=== PATIENT | female | born 1940 | race African-American/Black ===

== ENCOUNTER 2018-05-19 19:55 | Inpatient (IN) ==
[2018-05-19] MEDS ORDERED: SODIUM CHLORIDE 0.9% 1000ML 1,000 ML IV SCH (20:45)
[2018-05-19 21:34] LABS: Appearance Urine Cloudy (Clear); Bacteria Urine Automated Negative (Negative); Bilirubin Urine Negative (Negative); Color Urine Dark Yellow; Epithelial Cell Urine Auto >30 /lpf (0-5); Glucose Urine UA Negative (Negative); Ketones Urine 1+ (Negative); Leukocyte Esterase Urine Negative (Negative); Nitrite Urine Negative (Negative); Protein Urine Trace (Negative); Specific Gravity Urine 1.034 (1.000-1.030); Urobilinogen Urine Negative (Negative)
[2018-05-19 21:51] LABS: Cast Urine Automated >30 /lpf (0-5)
--- NOTE | 2018-05-19 22:25 | XRay Report ---
XR chest 1V portable HISTORY: 77 years-old Female ams acutely altered mental status. Acute chest trauma with fall. COMPARISON: None available TECHNIQUE: Portable AP view of the chest FINDINGS: Cardiac silhouette is upper limits of normal in size. Lungs are mildly hyperinflated. No pneumothorax , pleural effusion, focal airspace consolidation or overt pulmonary edema. Indeterminate 3 mm nodular density of left midlung. Bones of the chest appear grossly intact. Patient is rotated towards the le ft. IMPRESSION: No acute process. The above report was generated using voice recognition software. It may contain grammatical, syntax o r spelling errors. Electronically signed by: Jatin Franz M.D. 05/19/2018 10:24 PM
--- NOTE | 2018-05-19 22:28 | XRay Report ---
XR hip BI w PEL1V, XR femur LT 2V routine, XR femur RT 2V routine HISTORY: 77 years-old Female pain fall acute pelvic and bilateral thigh pain status post fall COMPARISON: None available TECHNIQUE: AP view of the pelvis with 2 views of the bilateral hips and 2 views of the femora FINDINGS: PELVIS AND BILATERAL HIPS: Mildly demineralized appearance of the bones. 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 No acute fracture, dislocation or avascular necrosis. Soft tissues are unremarka ble. RIGHT FEMUR: No acute fracture or dislocation. LEFT FEMUR: No acute fracture or dislocation. Soft tissue swelling lateral to the left hip. IMPRESSION: No acute fracture or dislocation. The above report was generated using voice recognition software. It may contain grammatical, syntax o r spelling errors. Electronically signed by: Jatin Franz M.D. 05/19/2018 10:27 PM
--- NOTE | 2018-05-19 22:32 | XRay Report ---
XR knee RT 2V routine, XR tibia fibula LT 2V, XR knee LT 2V routine, XR tibia fibula RT 2V HISTORY: 77 years-old Female pain fall acute pain of the bilateral lower extremity status post fall COMPARISON: None available TECHNIQUE: 2 views of the bilateral knees and 2 views of the bilateral tibia and fibula FINDINGS: RIGHT KNEE: Mild lateral compartment with moderate medial and mild patellofemoral compartment osteoarthritis. No acute fracture or dislocation. 9 mm subcortical cyst versus osteochondral defect of the medial femora l condyle. Small joint effusion. LEFT KNEE: Mild medial compartment with mild to moderate lateral and mild patellofemoral osteoarthritis. Spurrin g of the tibial spines. Small joint effusion. No acute fracture or dislocation. RIGHT TIBIA/FIBULA: No acute fracture or dislocation. LEFT TIBIA/FIBULA: No acute fracture or dislocation. IMPRESSION: 1. No acute fracture or dislocation. 2. Small bilateral knee joint effusions. The above report was generated using voice recognition software. It may contain grammatical, syntax o r spelling errors. Electronically signed by: Jatin Franz M.D. 05/19/2018 10:31 PM
[2018-05-19 22:38] LABS: Alanine Aminotransferase 26 U/L (12-78); Albumin Level 2.7 gm/dl (3.4-5.0); Aspartate Aminotransferase 38 U/L (15-37); Bilirubin Direct 0.2 mg/dl (0-0.2); Blood Urea Nitrogen 34 mg/dl (7-18); Calcium 9.5 mg/dl (8.5-10.1); Carbon Dioxide 23 mmol/L (21-32); Chloride 117 mmol/L (98-107); Est GFR (African American) 31.6; Est GFR (Non-African American) 27.2; Glucose 156 mg/dl (70-99); Magnesium 2.9 mg/dl (1.8-2.4); Sodium 155 mmol/L (136-145)
[2018-05-19 22:47] LABS: Albumin Globulin Ratio 0.5 (0.9-2); Alkaline Phosphatase 94 U/L (45-117); Bilirubin,Total 0.6 mg/dl (0.1-1); Creatine Kinase 784 U/L (26-192); Globulin 5.6 gm/dl (2.5-4.0); Phosphorus 4.5 mg/dl (2.5-4.9); Total Protein 8.3 gm/dl (6.4-8.2); Troponin I 0.031 ng/ml (0-0.045)
--- NOTE | 2018-05-19 22:48 | CT Scan Report ---
CT head/brain wo con CLINICAL HISTORY: 77 years-old Female with syncope. Acute syncope TECHNIQUE: Multiple axial CT images of the head were obtained without contrast. A dose lowering tech nique was utilized adhering to the principles of ALARA. CT DOSE: 918.35 mGy.cm COMPARISON: CT cervical spine of same day. FINDINGS: No acute intracranial hemorrhage, midline shift, intracranial mass, hydrocephalus, territorial ischem ia or abnormal extra-axial collection. Moderate atrophy with ex vacuo ventriculomegaly. Moderate hypo densities about the white matter are suggestive of chronic microvascular ischemic changes. The calvarium is intact. The paranasal sinuses, mastoid air cells, and middle ear cavities are clear . IMPRESSION: No acute intracranial abnormality or calvarial fracture. The above report was generated using voice recognition software. It may contain grammatical, syntax o r spelling errors. Electronically signed by: Jatin Franz M.D. 05/19/2018 10:46 PM
--- NOTE | 2018-05-19 22:51 | CT Scan Report ---
CT cervical spine wo con CLINICAL HISTORY: 77 years-old Female with pain fall. Acute neck injury status post fall COMPARISON: CT head of same day. TECHNIQUE: Multiple axial CT images of the cervical spine were obtained without contrast. A dose low ering technique was utilized adhering to the principles of ALARA. FINDINGS: Multilevel uncovertebral spurring with mild facet arthrosis. No significant intervertebral disc space narrowing, acute fracture or subluxation. Evaluation of the central canal and neuroforamina is sandy r assessed by MRI. No definite high-grade central canal or foraminal narrowing identified. No prevertebral soft tissue swelling. Calcification noted about the bilateral carotid bulbs. Imaged l braxton apices appear clear. IMPRESSION: No acute cervical spine fracture or subluxation. The above report was generated using voice recognition software. It may contain grammatical, syntax o r spelling errors. Electronically signed by: Jatin Franz M.D. 05/19/2018 10:50 PM
--- NOTE | 2018-05-20 01:10 | Emergency Department Note ---
Entered by Gunner Burns acting as a scribe for History of Present Illness General Chief complaint: Fall Stated complaint: FALL Time Seen by Provider: 05/19/18 20:17 Source: patient and family Mode of arrival: ambulatory Limitations: altered mental status (Alzheimer's) History of Present Illness Provider complaint: fall Onset (ago): hour(s) (around 1530 today) Location: head (generalized) Pain Consistency: + other (episode) Quality: + other (fall) Associated symptoms: + confusion The patient is a 77 year old female who presents to the Emergency Room after experiencing a fall sometime around 1530 today. The HPI was limited and obtained via the patient's family and friends due to the fact the patient has a history of Alzheimer's and dementia. Per the patients family, they found her laying on the floor by her bed around 1530. The family reports they picked her up and placed her back on the bed and when they came back to check on her, she was leaning on her left side and almost sliding off of the bed. Prior to finding her the first time, the family states that they helped her to bed around 1500. A family friend states that she was unable to get a blood pressure on the patient and decided to bring her the the ED. The family reports the patient does not walk around independently and has been refusing to get up and eat or drink for about 4 days. The family reports the patient has generalized weakness. The family reports that the patient was more confused when they found her than she typically is. The family states that they had to carry the patient to the car as she refused to get up. 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 and A total of 10 systems reviewed and were otherwise negative Physical Exam Vital Signs Vital Signs - 24 hr 05/19/18 19:57 05/19/18 20:44 05/19/18 22:00 Temperature 36.4 C L Temperature Source Axillary Sepsis Recent Fever Within 48 Hours No Sepsis New/Unexplained Change in Mental Status No Sepsis Action Taken by Nursing No Action Required Pulse Rate 86 Pulse Rate [Right Finger] 101 H 99 H Pulse Rhythm [Right Finger] Regular Regular Pulse Strength [Right Finger] Normal Normal Respiratory Rate 18 19 19 Respiratory Effort / Characteristics Non-Labored Respiratory Depth Normal Respiratory Pattern Regular Blood Pressure [Right Arm] 136/94 Blood Pressure Mean [Right Arm] 108 Blood Pressure Position [Right Arm] Lying Pulse Oximetry 97 98 98 Oxygen Delivery Method Room Air Room Air 05/19/18 22:02 05/19/18 22:47 05/20/18 02:22 Temperature Temperature Source Sepsis Recent Fever Within 48 Hours Sepsis New/Unexplained Change in Mental Status Sepsis Action Taken by Nursing Pulse Rate Pulse Rate [Right Finger] 98 H 85 78 Pulse Rhythm [Right Finger] Regular Pulse Strength [Right Finger] Normal Respiratory Rate 21 20 18 Respiratory Effort / Characteristics Non-Labored Respiratory Depth Normal Respiratory Pattern Regular Blood Pressure [Right Arm] 124/85 115/95 126/59 L Blood Pressure Mean [Right Arm] 98 101 81 Blood Pressure Position [Right Arm] Lying Lying Pulse Oximetry 97 97 98 Oxygen Delivery Method Room Air 05/20/18 02:24 05/20/18 03:00 Temperature 36.3 C L Temperature Source Oral Sepsis Recent Fever Within 48 Hours Sepsis New/Unexplained Change in Mental Status Sepsis Action Taken by Nursing Pulse Rate Pulse Rate [Right Finger] 90 Pulse Rhythm [Right Finger] Regular Pulse Strength [Right Finger] Normal Respiratory Rate 16 Respiratory Effort / Characteristics Non-Labored Spontaneous Respiratory Depth Normal Respiratory Pattern Regular Blood Pressure [Right Arm] 91/81 L Blood Pressure Mean [Right Arm] 84 Blood Pressure Position [Right Arm] Lying Pulse Oximetry 94 Oxygen Delivery Method Room Air Room Air GENERAL: Awake, alert, ill-appearing, unkept. Pleasantly confused. In no distress. HENT: Normocephalic, atraumatic. Dry, cracked mucous membranes. EYES: Normal conjunctiva. Sclera non-icteric. NECK: Supple. No nuchal rigidity. FROM. No JVD. RESPIRATORY: Clear to auscultation. CARDIAC: Regular rate, normal rhythm. Extremities warm and well perfused. Pulses equal. ABDOMEN: Soft, non-distended. No tenderness to palpation. No rebound or guarding. No masses. RECTAL: Deferred. MUSCULOSKELETAL: Chest examination reveals no tenderness. The back is symmetrical on inspection without obvious abnormality. There is no CVA tenderness to palpation. LOWER EXTREMITIES: No discoloration. Tenderness of bilateral lower extremity from hip to ankle. No gross deformity. Left lower extremity 2+ edema. NEURO: Normal sensorium. No sensory or motor deficits noted. Moving all extremities equally. SKIN: No rash or jaundice noted. Course 2018: Past medical records reviewed. The patient was evaluated in room A1, and a complete history and physical examination were performed. 2255: [facility] will evaluate the patient for further management. 2300: The patient and family at bedside verbally expressed understanding and agreement of the treatment plan. The patient will be further evaluated by Dr. Gary [facility]. Reevaluation(s) Reevaluation #1: Dr. Gary [facility] Time: 22:55 Administered Medications Discontinued Medications Sodium Chloride (Nss 1000ml) 1,000 mls @ 999 mls/hr IV .Q1H1M WANG Stop: 05/19/18 21:45 Last Infusion: 05/19/18 23:27 Dose: 0 mls/hr Admin: 05/19/18 22:20 Dose: 999 mls/hr Medical Decision Making Differential Diagnosis Differential diagnosis: Etiologies such as metabolic, infection, hypo/hyperglycemia, electrolyte abnormalities, cardiac sources, intracerebral event, toxicologic, neurologic, as well as others were entertained. Medical Records Attestation: I reviewed the patient's medical records. Home Medications Current Medication List: was personally reviewed by me Laboratory Data Attestation: I reviewed the patient's lab results. Result diagrams: 05/19/18 22:12 05/19/18 22:12 Lab Results 05/19/18 05/19/18 05/19/18 Range/Units 21:13 22:12 22:12 WBC Cancelled RBC Cancelled Hgb Cancelled Hct Cancelled MCV Cancelled MCH Cancelled MCHC Cancelled RDW Std Deviation Cancelled RDW Coeff of Neo Cancelled Plt Count Cancelled MPV Cancelled Immature Gran % (Auto) Cancelled Neut % (Auto) Cancelled Lymph % (Auto) Cancelled Person % (Auto) Cancelled Eos % (Auto) Cancelled Baso % (Auto) Cancelled Immature Gran # (Auto) Cancelled Neut # (Auto) Cancelled Lymph # (Auto) Cancelled Person # (Auto) Cancelled Eos # (Auto) Cancelled Baso # (Auto) Cancelled Absolute Nucleated RBC Cancelled Nucleated RBC % (auto) Cancelled Neutrophils % (Manual) Cancelled Band Neutrophils % Cancelled Lymphocytes % (Manual) Cancelled Prolymphocyte % Cancelled Reactive Lymphs % (Man) Cancelled Monocytes % (Manual) Cancelled Eosinophils % (Manual) Cancelled Basophils % (Manual) Cancelled Metamyelocytes % (Man) Cancelled Myelocytes % (Man) Cancelled Promyelocytes % (Man) Cancelled Blast Cells % (Manual) Cancelled Plasma Cell % (Manual) Cancelled Other Cells % Cancelled Nucleated RBC % Cancelled Neutrophils # (Manual) Cancelled Band Neutrophils # Cancelled Total Absolute Neuts Cancelled Lymphocytes # (Manual) Cancelled Prolymphocyte # Cancelled Reactive Lymphs # Cancelled Total Abs Lymphocytes Cancelled Monocytes # (Manual) Cancelled Eosinophils # (Manual) Cancelled Basophils # (Manual) Cancelled Metamyelocytes # (Man) Cancelled Myelocytes # (Manual) Cancelled Promyelocytes # (Man) Cancelled Blast Cells # (Man) Cancelled Plasma Cell # (Manual) Cancelled Other Cells # Cancelled Nucleated RBCs # (Man) Cancelled Hypersegmented Neuts Cancelled Hyposegmented Neuts Cancelled Hypogranular Neuts Cancelled Large Granular Lymphs Cancelled # Lrg Granular Lymphs Cancelled Hairy Cells Cancelled Smudge Cells Cancelled Toxic Granulation Cancelled Toxic Vacuolation Cancelled Dohle Bodies Cancelled Garcia Rods Cancelled Platelet Estimate Cancelled Hypogranular Platelets Cancelled Clumped Platelets Cancelled Giant Platelets Cancelled Platelet Satelliting Cancelled RBC Morphology Cancelled Polychromasia Cancelled Hypochromasia Cancelled Poikilocytosis Cancelled Basophilic Stippling Cancelled Anisocytosis Cancelled Microcytosis Cancelled Macrocytosis Cancelled Spherocytes Cancelled Pappenheimer Bodies Cancelled Sickle Cells Cancelled Target Cells Cancelled Tear Drop Cells Cancelled Ovalocytes Cancelled Stomatocytes Cancelled Lamb-Chesnee Bodies Cancelled Echinocytes Cancelled Acanthocytes (Spur) Cancelled Rouleaux Cancelled RBC Agglutinates Cancelled Schistocytes Cancelled RBC Morph Comment Cancelled Sezary Cell Cancelled Sodium 155 H (136-145) mmol/L Potassium 4.0 (3.5-5.1) mmol/L Chloride 117 H (98-107) mmol/L Carbon Dioxide 23 (21-32) mmol/L Anion Gap 14.0 H (3-11) BUN 34 H (7-18) mg/dl Creatinine 1.76 H (0.6-1.2) mg/dl Est Cr Clr Drug Dosing Not Reportable Est GFR ( Amer) 31.6 Est GFR (Non-Af Amer) 27.2 BUN/Creatinine Ratio 19.0 (10-20) Glucose 156 H (70-99) mg/dl Calcium 9.5 (8.5-10.1) mg/dl Phosphorus 4.5 (2.5-4.9) mg/dl Magnesium 2.9 H (1.8-2.4) mg/dl Total Bilirubin 0.6 (0.1-1) mg/dl Direct Bilirubin 0.2 (0-0.2) mg/dl AST 38 H (15-37) U/L ALT 26 (12-78) U/L Alkaline Phosphatase 94 (45-117) U/L Total Creatine Kinase 784 H (26-192) U/L Troponin I 0.031 (0-0.045) ng/ml Total Protein 8.3 H (6.4-8.2) gm/dl Albumin 2.7 L (3.4-5.0) gm/dl Globulin 5.6 H (2.5-4.0) gm/dl Albumin/Globulin Ratio 0.5 L (0.9-2) Lipase 147 (73-393) U/L TSH 3.810 (0.300-4.500) uIu/ml Urine Color Dark Yellow Urine Appearance Cloudy H (Clear) Urine pH 5.0 (4.5-7.5) Ur Specific [place] 1.034 H (1.000-1.030) Urine Protein Trace H (Negative) Urine Glucose (UA) Negative (Negative) Urine Ketones 1+ H (Negative) Urine Blood Negative (Negative) Urine Nitrite Negative (Negative) Urine Bilirubin Negative (Negative) Urine Urobilinogen Negative (Negative) Ur Leukocyte Esterase Negative (Negative) Urine WBC (Auto) 1-5 (0-5) /hpf Urine RBC (Auto) 0-4 (0-4) /hpf U Hyaline Cast (Auto) >30 H (0-5) /lpf U Epithel Cells (Auto) >30 H (0-5) /lpf Urine Bacteria (Auto) Negative (Negative) Granular Casts 1-5 H (0) /lpf Imaging Data Radiologist's Impression: Radiology results as stated below per my review and the radiologist's interpretation: CT head/brain wo con CLINICAL HISTORY: 77 years-old Female with syncope. Acute syncope TECHNIQUE: Multiple axial CT images of the head were obtained without contrast. A dose lowering technique was utilized adhering to the principles of ALARA. CT DOSE: 918.35 mGy.cm COMPARISON: CT cervical spine of same day. FINDINGS: No acute intracranial hemorrhage, midline shift, intracranial mass, hydrocephalus, territorial ischemia or abnormal extra-axial collection. Moderate atrophy with ex vacuo ventriculomegaly. Moderate hypodensities about the white matter are suggestive of chronic microvascular ischemic changes. The calvarium is intact. The paranasal sinuses, mastoid air cells, and middle ear cavities are clear. IMPRESSION: No acute intracranial abnormality or calvarial fracture. The above report was generated using voice recognition software. It may contain grammatical, syntax or spelling errors. Electronically signed by: Jatin Franz M.D. 05/19/2018 10:46 PM XR knee RT 2V routine, XR tibia fibula LT 2V, XR knee LT 2V routine, XR tibia fibula RT 2V HISTORY: 77 years-old Female pain fall acute pain of the bilateral lower extremity status post fall COMPARISON: None available TECHNIQUE: 2 views of the bilateral knees and 2 views of the bilateral tibia and fibula FINDINGS: RIGHT KNEE: Mild lateral compartment with moderate medial and mild patellofemoral compartment osteoarthritis. No acute fracture or dislocation. 9 mm subcortical cyst versus osteochondral defect of the medial femoral condyle. Small joint effusion. LEFT KNEE: Mild medial compartment with mild to moderate lateral and mild patellofemoral osteoarthritis. Spurring of the tibial spines. Small joint effusion. No acute fracture or dislocation. RIGHT TIBIA/FIBULA: No acute fracture or dislocation. LEFT TIBIA/FIBULA: No acute fracture or dislocation. IMPRESSION: 1. No acute fracture or dislocation. 2. Small bilateral knee joint effusions. The above report was generated using voice recognition software. It may contain grammatical, syntax or spelling errors. Electronically signed by: Jatin Franz M.D. 05/19/2018 10:31 PM XR hip BI w PEL1V, XR femur LT 2V routine, XR femur RT 2V routine HISTORY: 77 years-old Female pain fall acute pelvic and bilateral thigh pain status post fall COMPARISON: None available TECHNIQUE: AP view of the pelvis with 2 views of the bilateral hips and 2 views of the femora FINDINGS: PELVIS AND BILATERAL HIPS: Mildly demineralized appearance of the bones. 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 No acute fracture, dislocation or avascular necrosis. Soft tissues are unremarkable. RIGHT FEMUR: No acute fracture or dislocation. LEFT FEMUR: No acute fracture or dislocation. Soft tissue swelling lateral to the left hip. IMPRESSION: No acute fracture or dislocation. The above report was generated using voice recognition software. It may contain grammatical, syntax or spelling errors. Electronically signed by: Jatin Franz M.D. 05/19/2018 10:27 PM XR chest 1V portable HISTORY: 77 years-old Female ams acutely altered mental status. Acute chest trauma with fall. COMPARISON: None available TECHNIQUE: Portable AP view of the chest FINDINGS: Cardiac silhouette is upper limits of normal in size. Lungs are mildly hyperinflated. No pneumothorax, pleural effusion, focal airspace consolidation or overt pulmonary edema. Indeterminate 3 mm nodular density of left midlung. Bones of the chest appear grossly intact. Patient is rotated towards the left. IMPRESSION: No acute process. The above report was generated using voice recognition software. It may contain grammatical, syntax or spelling errors. Electronically signed by: Jatin Franz M.D. 05/19/2018 10:[address] cervical spine wo con CLINICAL HISTORY: 77 years-old Female with pain fall. Acute neck injury status post fall COMPARISON: CT head of same day. TECHNIQUE: Multiple axial CT images of the cervical spine were obtained without contrast. A dose lowering technique was utilized adhering to the principles of ALARA. FINDINGS: Multilevel uncovertebral spurring with mild facet arthrosis. No significant intervertebral disc space narrowing, acute fracture or subluxation. Evaluation of the central canal and neuroforamina is better assessed by MRI. No definite high-grade central canal or foraminal narrowing identified. No prevertebral soft tissue swelling. Calcification noted about the bilateral carotid bulbs. Imaged lung apices appear clear. IMPRESSION: No acute cervical spine fracture or subluxation. The above report was generated using voice recognition software. It may contain grammatical, syntax or spelling errors. Electronically signed by: Jatin Franz M.D. 05/19/2018 10:50 PM STATRAD: Preliminary Findings Only See Final Report For Complete Findings US VENOUS LEFT LOWER EXTREMITY: Findings consistent with acute deep vein thrombosis in left common femoral vein , femoral vein, and popliteal vein. The left common femoral vein is patent above the level of the greater saphenous vein and veins are occluded below this point. Also evidence of thrombus in the calf veins where a small amount of flow is demonstrated. Radiologist: Trell Singh MD Study ready at 00:50 and initial results transmitted at 01:03 Critical Value Communications Clear Time Type Notes Call Doctor Acute DVT ECG Data Attestation: I personally reviewed and interpreted this ECG as follows: Indication: other (fall) Rate (beats per minute): 103 Rhythm: sinus tachycardia Findings: + other (normal axis, significant baseline artifact) and + nonspecific -ST abn; no acute ischemic change Blood Pressure Blood Pressure Findings: Normal blood pressure Blood Pressure Disposition: did not require urgent referral MDM Narrative The patient is a pleasant 77-year-old woman with a past medical history of dementia resents emergency department from home with worsening generalized weakness and confusion over the past week subsequent unwitnessed fall today found down by her granddaughter, helped back into bed allowed to rest but upon reevaluation the family found her with decreased responsiveness and unwillingness to ambulate and so was brought to the emergency department. On arrival the patient is alert to self, pleasantly confused at her baseline per family at the bedside. EKG demonstrates sinus tachycardia with baseline artifact and nonspecific ST and T wave abnormalities but no gross evidence of ischemia. Chest x-ray negative for pneumonia. Plain films of bilateral hips, pelvis, femur, tib-fib negative for fractures. Chemistry demonstrates acute renal failure and hypernatremia consistent with the patient's clinically dry appearance. Sodium 155, chloride 117, BUN 34 and creatinine 1.76. UA with ketones consistent with the patient's clinically dry appearance. No evidence of infection at this time. Additional labs pending however, given indication for admission, case was d/w [facility]. Gary, [facility] hospitalist, who will evaluate the patient for admission. Duplex performed of the left lower extremity and demonstrates extensive DVT including common femoral vein, femoral vein, and popliteal vein. Patient was difficult IV access given her significant dehydration. Initial chemistry obtained however CBC still pending. IV access was obtained in her foot. I did attempt an ultrasound-guided peripheral line twice however despite initial successful cannulation patient's movement resulted in failure of line. Patient's daughter at the bedside expressing frustration, "she is not a pin cushion." Thus, additional IV access pending IV team. Lab also unable to obtain access for cbc. Will hold on heparinization for DVT until CBC obtained. Of note, there was report of failure of patient's foot IV access however bed was ready and patient was transferred to floor by nursing upon IV team arrival prior to obtaining CBC or additional IV access. Thus, IV team to place periphereal line on floor and obtain pending lab work. Dr. Gary was updated. Impression & Plan Hypernatremia, RYAN (acute kidney injury), DVT of lower extremity (deep venous thrombosis) Discharge Plan Visit Data *Final* Discharge Date/Time: 05/20/18 02:24 Chief Complaint: Fall Stated Complaint: FALL ED Provider: Lakhwinder Dash Discharge Problem: Hypernatremia, RYAN (acute kidney injury), DVT of lower extremity (deep venous thrombosis) Patient Disposition: Admitted As Inpatient Discharge Instructions Interventions: ED Discharge Assessment Last Done: 05/20/18 02:24 The scribe's documentation has been prepared under my direction and personally reviewed by me in its entirety. I confirm that the note above accurately reflects all work, treatment, procedures, and medical decision making performed by me.
[2018-05-20] MEDS ORDERED: NITROGLYCERIN SL 0.4 MG/TAB TAB SL PRN (03:16)
[2018-05-20] MEDS ORDERED: SODIUM CHLORIDE 0.45 % 1,000 ML IV SCH (03:16)
[2018-05-20] MEDS ORDERED: PATIENT'S HEIGHT AND/OR WEIGHT NEEDED SCH (03:30)
--- NOTE | 2018-05-20 04:01 | History and Physical Report ---
DATE OF ADMISSION: 05/19/2018 CHIEF COMPLAINT: Status post fall. HISTORY OF PRESENT ILLNESS: This is a 77-year-old female with past medical history significant for vascular dementia, Alzheimer dementia, chronic kidney disease stage III, who lives with her daughter, was brought in because she fell from the bed. Patient has ongoing dementia. As per daughter patinet is not walking since February. She is eating very little. She is on regular food. Last bowel movement was about a week ago, and she is urinating okay. Mostly does not talk much. She can tell her name, she does not know where she is, obeys simple commands. As per daughter, she complained of some right groin pain. Currently resting comfortably and hemodynamically stable. Labs showed sodium of 155. Afebrile. No cough, no nausea, no vomiting, no headaches. Could not get much history from the patient. Daughter Also complains of left lower extremity swelling ALLERGIES: PENICILLIN. PAST MEDICAL HISTORY: As mentioned above. PAST SURGICAL HISTORY: None. MEDICATIONS: Seroquel 25 mg p.o. at bedtime. FAMILY HISTORY: No family history on file. SOCIAL HISTORY: . Lives with the daughter. Former smoker many, years ago. No alcohol use, no drug use as per records. REVIEW OF SYSTEMS: Unobtainable. PHYSICAL EXAMINATION: GENERAL: Patient is old and frail, not in acute distress. VITAL SIGNS: Temperature 36.4, pulse 85, respiratory rate 20, blood pressure 115/95, oxygen saturation 97% on room air. HEENT: No pallor, no icterus. Pupils equal, round, and reactive to light. NECK: No JVD, no neck masses, no carotid bruits. CARDIOVASCULAR SYSTEM: S1 and S2 heard, regular rate and rhythm, no murmur, no gallop. RESPIRATORY SYSTEM: Clear to auscultation bilaterally. No wheezing, no crackles. ABDOMEN: Soft, bowel sounds present, nontender, no distention. CENTRAL NERVOUS SYSTEM: Alert, awake, oriented to name only, obeys simple commands. EXTREMITIES: left lower extremity edema present, no erythema seen . LABORATORY DATA: Only chemistries were drawn, which showed sodium of 155, potassium of 4, chloride 117, CO2 of 23, BUN 34, creatinine 1.76, glucose 156, calcium 9.5, phosphorus 4.5, magnesium 2.9, total bilirubin 0.6, direct bilirubin 0.2, AST 38, ALT 26, alkaline phosphatase 94, total creatinine kinase 184. Troponin I is 0.034. Lipase 147. TSH 3.8. Urinalysis: Trace ketones and protein. IMAGING: CT of the head unremarkable. Tibia/fibula x-ray unremarkable. Knee x-ray is unremarkable. Hip x-ray unremarkable. Femur x-ray unremarkable. Chest x-ray: No acute process. Cervical spine CT: No acute process. Venous Doppler is pending. ASSESSMENT AND PLAN: This is a 77-year-old female who presents with fall and found to have hypernatremia, dementia, seems to be failure to thrive. Not eating much at home. She is still on regular diet. She has dementia since about 1 year as per daughter, and she is not walking since February. Will put her on a soft diet until nutrition and also speech evaluation. For hypernatremia, will place him on half normal saline at 100 mL/h. and BMP q.6 h. and consult nephrology for further recommendations. Fall Patient is not ambulating since February. Will get PT/OT. Social service for plan on disposition. Daughter seems poor historian. Needs to check safe to return home on disposition. Acute on chronic kidney disease stage III. Baseline creatinine 1.0, current creatinine 1.7. Fluids as able. We will follow the labs. Dementia. Recently, daughter took her to the neurologist, but she did not stay there for complete examination. Consider consulting neurology while the patient is inpatient. CT of the brain was done in 02/2018 and It showed calcified meningioma on the left frontal convex. Mild mass effect. CT of the head done In ER shows no acute findings. Consider neurology consult. DVT prophylaxis. heparin DISPOSITION: Admit to tele floor. PT/OT prior to discharge. Social Service to help with discharge planning. Code status level 3 as per discussion with the daughter. Addendum: Left lower extremity DVT: Starting on iv heparin whenever iv line available difficult to get a line. Ordered picc line. [facility]
[2018-05-20 05:48] LABS: INR 1.3 (0.9-1.1); Partial Thromboplastin Ratio 0.8; Partial Thromboplastin Time 20.5 Seconds (21.0-31.0); Prothrombin Time 12.7 Seconds (9.0-12.0)
[2018-05-20] MEDS ORDERED: HEPARIN SOD 5,000 UNIT/0.5 ML VIAL SQ SCH (06:00)
[2018-05-20 06:13] LABS: BUN Creatinine Ratio 26.2 (10-20); Calcium 8.5 mg/dl (8.5-10.1); Creatinine Clr Calc Pharmacy 32.4 ml/min; Est GFR (African American) 41.3; Est GFR (Non-African American) 35.6; Hematocrit (blood only) 40.6 % (37-47); Hemoglobin 12.2 g/dL (12.0-16.0); Magnesium 2.7 mg/dl (1.8-2.4); Mean Corpuscular Volume 74.4 fL (80-100); Nucleated RBC # (auto) 0.06 K/uL (0-0); Nucleated RBC % (auto) 0.4 %; Platelet Count 192 K/uL (130-400); Potassium 4.1 mmol/L (3.5-5.1); RDW Coefficient of Variation 14.9 % (11.5-14.5); RDW Standard Deviation 39.3 fL (36.4-46.3); Red Blood Count 5.46 M/uL (4.2-5.4); White Blood Count 16.67 K/uL (4.8-10.8)
[2018-05-20 06:14] LABS: Basophils # (auto) 0.02 K/uL (0-0.2); Basophils % (auto) 0.1 %; Eosinophils # (auto) 0.09 K/uL (0-0.5); Eosinophils % (auto) 0.5 %; Hypochromasia Present; Immature Granulocytes % (auto) 0.6 %; Lymphocytes # (auto) 1.71 K/uL (1.2-3.4); Lymphocytes % (auto) 10.3 %; Monocytes # (auto) 1.35 K/uL (0.11-0.59); Monocytes % (auto) 8.1 %; Neutrophils % (auto) 80.4 %
[2018-05-20 06:17] LABS: Phosphorus 3.4 mg/dl (2.5-4.9)
--- NOTE | 2018-05-20 07:07 | Ultrasound Report ---
LEFT LOWER EXTREMITY VENOUS DOPPLER CLINICAL HISTORY: swelling pain. COMPARISON STUDY: No previous studies for comparison. TECHNIQUE: Sonography of the deep venous system of the left lower extremity was performed. Compressi on and augmentation were evaluated. FINDINGS: Note is made of deep venous thrombus within the left common femoral, femoral and popliteal veins. There is also suspected thrombus within the left calf veins. IMPRESSION: Extensive left lower extremity deep venous thrombus. Electronically signed by: Mc Mckay M.D. 05/20/2018 7:05 AM
[2018-05-20 08:11] LABS: Base Excess VBG 1.8 mEq/L; Oxygen Saturation VBG 72.8 %; pH VBG 7.41 (7.36-7.41)
[2018-05-20] MEDS ORDERED: HEPARIN IV BOLUS 5,000 UNITS in SYRINGE 0 ML IV ONE (09:00)
[2018-05-20] MEDS: MULTIVITAMIN TAB PO SCH (09:32)
[2018-05-20] MEDS: HEPARIN STANDARD DEXTROSE 25,000 UNITS/500 ML IV SCH (09:38)
[2018-05-20] MEDS: DEXTROSE 5% 500 ML IV SCH ×2 (09:38→14:59)
[2018-05-20 12:15] LABS: BUN Creatinine Ratio 25.9 (10-20); Calcium 8.9 mg/dl (8.5-10.1); Est GFR (African American) 40.6
[2018-05-20 13:09] LABS: BUN Creatinine Ratio 25.7 (10-20); Calcium 8.8 mg/dl (8.5-10.1); Creatinine Clr Calc Pharmacy 31.8 ml/min; Est GFR (African American) 40.2; Est GFR (Non-African American) 34.7; Potassium 3.6 mmol/L (3.5-5.1)
--- NOTE | 2018-05-20 14:11 | Consultation Report ---
DATE OF CONSULTATION: 05/20/2018 REASON FOR CONSULT: Acute renal failure and hypernatremia. HISTORY OF PRESENT ILLNESS: The patient is a 77-year-old female with dementia as well as chronic kidney disease stage III, who lives with her daughter, who was brought in because she fell from the bed. The patient has ongoing dementia. She has not been able to walk for the last 2 months. She is not eating anything. Last bowel movement was about a week ago. At the time of admission, serum sodium was 155. Since then, she got normal saline and this morning, sodium went up even higher to 157 after which fluid was changed over to D5 water. We do not have a BMP since being on the D5 water. She is currently getting at 100 mL per hour. Creatine kinase was also slightly elevated. Renal function was worse than baseline; however, it did improve from 1.76 on admission to 1.41 this morning. She does have a Dickinson catheter, but has not made a lot of urine as of now. Hemodynamically, she is stable with good blood pressure and pulse and oxygen. PAST MEDICAL AND SURGICAL HISTORY: Vascular dementia, Alzheimer dementia, CKD stage III with a baseline creatinine in the low 1s, hypertension. REVIEW OF SYSTEMS: Unobtainable as the patient has dementia and she does not answer questions, but she does talk a little bit. SOCIAL HISTORY: She is a , lives with her daughter. Former smoker. No alcohol, no drugs. FAMILY HISTORY: Noncontributory. MEDICATIONS: At home include Seroquel 25 mg p.o. at bedtime. PHYSICAL EXAMINATION: GENERAL: Elderly black female who is old and frail. She is not in any distress. She is pleasant and does answer simple questions, but then is not always accurate. HEENT: Mucous membrane is dry. NECK: Supple. No jugular venous distention. VITAL SIGNS: Blood pressure is 161/96, 94% on room air, temperature 36.2 degrees Celsius. CHEST: Decreased breath sounds because she did not take inspiratory effort. CARDIOVASCULAR: S1 and S2, regular. ABDOMEN: Soft, nontender. EXTREMITIES: No edema in the right, but she does have trace to 1+ edema in the left. LABORATORY TEST: Sodium 157, potassium 4.1, chloride 124, carbon dioxide 23, BUN 37, creatinine is down to 1.41 from 1.76, calcium 8.5, magnesium 2.7. Total creatine kinase was 784, dropped down to 595. She had a venous Doppler study done, which actually showed extensive left lower extremity DVT. ASSESSMENT AND PLAN: A 77-year-old female who has dementia and has not been moving for the last 2 months, presented to the hospital following a fall and was noted to have acute renal failure as well as hypernatremia. 1. Acute renal failure. 2. Hypernatremia. Both of these are related with extreme lack of oral intake. She has not been eating and even now in the hospital, she has not eaten even 10% of her meal. Etiology of hypernatremia as well as renal failure is prerenal and is getting better. At least the creatinine part is already better. Sodium will get better now that we have changed it to D5 water and will continue that at 100 mL per hour. 3. Left lower extremity deep venous thrombosis secondary to prolonged immobilization. She is getting heparin for that. This also explains why she has unilateral edema in the left. Continue to do BMP every 8 hours. We will do one now and another one later in the evening tonight. We would aim to correct the serum sodium by about 10 mEq per day. MTDD
[2018-05-20] MEDS: DEXTROSE 5% 1,000 ML IV SCH ×2 (15:32→23:35)
[2018-05-20 16:03] LABS: BUN Creatinine Ratio 26.3 (10-20); Calcium 8.5 mg/dl (8.5-10.1); Creatinine Clr Calc Pharmacy 32.9 ml/min; Est GFR (Non-African American) 36.2; Potassium 3.4 mmol/L (3.5-5.1)
[2018-05-20 16:47] LABS: Partial Thromboplastin Time 157.1 Seconds (21.0-31.0)
[2018-05-20 18:49] LABS: Partial Thromboplastin Ratio 8.1; Partial Thromboplastin Time 214.5 Seconds (21.0-31.0)
[2018-05-20 19:52] LABS: Partial Thromboplastin Ratio 2.9; Partial Thromboplastin Time 74.2 Seconds (21.0-31.0)
--- NOTE | 2018-05-20 20:07 | Hospitalist Progress Note ---
Date of Service May 20, 2018 Assessment & Plan (1) Hypernatremia: Hypernatremia serum sodium 155 on admission possibly hypernatremia can contribute to dementia On D5W which has been increased from 100 cc/hr to 125 cc/hr as repeated serum sodium with only decline to 154 Nephrology consult following the patient History of Dementia Recently, daughter took her to the neurologist, but she did not stay there for complete examination. Consider consulting neurology while the patient is inpatient. CT of the brain was done in 02/2018 and It showed calcified meningioma on the left frontal convex. Mild mass effect. CT of the head done In ER shows no acute findings. Fall at home Patient is minimally ambulating since February 2018 as per history PT/OT elevated creatinine kinase is downtrending with IV fluids Acute on chronic kidney disease stage III. Baseline creatinine 1.0, admission creatinine 1.7 on IV fluids (2) DVT of lower extremity (deep venous thrombosis): Extensive left lower extremity deep venous thrombus on heparin drip Code Status as per patient's daughter Miladys [phone], the code status is DNR/DNI Subjective Patient interactive with staff and responds more appropriately through the day but as per patient's daughter Miladys [phone] that her orientation is generally baseline dementia. Patient not oriented to time and place but pleasant. Denies acute pain or shortness of breath. no vomiting. Physical Exam 2 Vital Signs (Past 24 Hours): Last Vital Signs Temp 36.5 C 05/20/18 19:00 Pulse 70 05/20/18 19:00 Resp 19 05/20/18 19:00 BP 143/85 H 05/20/18 19:00 Pulse Ox 97 05/20/18 19:00 Constitutional: WD/WN, vitals as above Eyes: PERRL, conjunctivae normal, anicteric sclerae EOM intact bilaterally ENMT: external ear and nose normal, oropharynx normal Neck: normal visual inspection and trachea midline Respiratory: normal respiratory effort, lungs clear to auscultation Cardiovascular: RRR, no murmur, no edema Gastrointestinal (Abdomen): normal bowel sounds, soft, nontender, no hepatosplenomegaly Musculoskeletal: Head/Neck/Chest: normocephalic and head atraumatic Neurologic: PERRL, EOMI, accommodation nl, no face palsy, no dysarthria CN' s II-XI intact bilaterally Psychiatric: Orientation: alert and oriented to person _ (1) DVT of lower extremity (deep venous thrombosis) Affected thrombotic vein of extremity: femoral Chronicity: acute Laterality : left Qualified Code(s): I82.412 - Acute embolism and thrombosis of left femoral vein
[2018-05-20] MEDS ORDERED: QUETIAPINE FUMARATE 25 MG TABLET PO SCH (21:00)
[2018-05-20 22:25] LABS: BUN Creatinine Ratio 25.2 (10-20); Calcium 8.5 mg/dl (8.5-10.1); Creatinine Clr Calc Pharmacy 34.7 ml/min; Est GFR (African American) 44.7; Est GFR (Non-African American) 38.5; Potassium 3.3 mmol/L (3.5-5.1)
[2018-05-20] MEDS: SODIUM CHLORIDE 0.9% 1000ML 1,000 ML IV SCH ×2 (22:45→22:46)
[2018-05-21 02:36] LABS: Partial Thromboplastin Ratio 3.6
[2018-05-21 02:41] LABS: Partial Thromboplastin Time 94.1 Seconds (21.0-31.0)
[2018-05-21 07:06] LABS: Hematocrit (blood only) 35.5 % (37-47); Hemoglobin 10.7 g/dL (12.0-16.0); Mean Corpuscular Hgb Conc 30.1 g/dL (32-36); Mean Corpuscular Volume 74.4 fL (80-100); Platelet Count 170 K/uL (130-400); RDW Coefficient of Variation 14.8 % (11.5-14.5); RDW Standard Deviation 39.1 fL (36.4-46.3); Red Blood Count 4.77 M/uL (4.2-5.4); White Blood Count 10.02 K/uL (4.8-10.8)
[2018-05-21 07:07] LABS: Basophilic Stippling 1+; Eosinophils # (auto) 0.03 K/uL (0-0.5); Eosinophils % (auto) 0.3 %; Hypochromasia Present; Immature Granulocytes # (auto) 0.06 K/uL (0.00-0.02); Immature Granulocytes % (auto) 0.6 %; Lymphocytes # (auto) 1.64 K/uL (1.2-3.4); Lymphocytes % (auto) 16.4 %; Monocytes # (auto) 0.81 K/uL (0.11-0.59); Monocytes % (auto) 8.1 %; Neutrophils # (auto) 7.48 K/uL (1.4-6.5); Neutrophils % (auto) 74.6 %
[2018-05-21] MEDS: DEXTROSE 5% 1,000 ML IV SCH (07:41)
[2018-05-21] MEDS: MULTIVITAMIN TAB PO SCH (07:42)
[2018-05-21 10:20] LABS: Partial Thromboplastin Ratio 3.5
[2018-05-21 10:34] LABS: Partial Thromboplastin Time 91.4 Seconds (21.0-31.0)
[2018-05-21 10:36] LABS: BUN Creatinine Ratio 22.2 (10-20); Calcium 8.3 mg/dl (8.5-10.1); Creatinine Clr Calc Pharmacy 43.8 ml/min; Est GFR (African American) 57.6; Est GFR (Non-African American) 49.7
[2018-05-21] MEDS: POTASSIUM CHLORIDE / WTR 10 MEQ/100 ML PLCT IV SCH ×4 (11:25→14:49)
[2018-05-21] MEDS: WARFARIN SOD 5 MG TAB PO SCH (16:23)
--- NOTE | 2018-05-21 16:57 | Nephrology Progress Note ---
Date of Service May 21, 2018 Assessment & Plan (1) Hypernatremia: Patient with hypernatremia due to inadequate free water intake. Na improved to 145 this morning. Agree with holding D5 water. Monitor Na daily. Patient might need a PEG tube to guarante water intake. (2) RYAN (acute kidney injury): Due to pre renal azotemia. Cr improved with Iv fluids. Monitor daily. (3) Hypokalemia: Patient with hypokalemia likely due to inadequate intake. Agree with KCL supplements. She might need standing Kcl orally but will decide by time of discharge. Subjective Patient unable to give history due to dementia. Na improving to 145 today. Review of Systems Unobtainable due to cognitive status Physical Exam 2 Vital Signs (Past 24 Hours): Last Vital Signs Temp 37 C 05/21/18 15:12 Pulse 84 05/21/18 15:12 Resp 18 05/21/18 15:12 BP 163/74 H 05/21/18 15:12 Pulse Ox 98 05/21/18 15:12 Physical Exam: General exam: Appears comfortable, no acute distress HEENT: Pupils are equal and reactive to light Neck: No JVD, neck is supple trachea is midline Respiratory system: Clear breath sounds bilaterally. Gastrointestinal: Abdomen is soft, non distended, non tender, bowel sounds are present CVS: Regular rate and rhythm. No murmurs, rubs or gallops Musculoskeletal: No joint or muscle tenderness Extremities: Non tender, no edema, peripheral pulses are present Neuro: demented, no tremors, no focal neurological deficits Skin: No rashes
--- NOTE | 2018-05-21 18:01 | Hospitalist Progress Note ---
Date of Service May 21, 2018 Assessment & Plan (1) Hypernatremia: Hypernatremia serum sodium 157 on admission possibly hypernatremia can contribute to dementia when on D5W between 100 to 125 cc/hr the serum sodium last trended down to 145 the D5 water stopped repeating BMP if the serum sodium is greater than 152 then the D5 should be resumed History of Dementia (Recently, daughter took her to the neurologist, but she did not stay there for complete examination. Consider consulting neurology while the patient is inpatient. CT of the brain was done in 02/2018 and It showed calcified meningioma on the left frontal convex. Mild mass effect. CT of the head done In ER shows no acute findings) possibly the hypernatremia can contribute to dementia Fall at home Patient is minimally ambulating since February 2018 as per history PT/OT elevated creatinine kinase has downtrended after IV fluids Acute on chronic kidney disease stage III. Baseline creatinine 1.0, admission creatinine 1.7 RYAN has now resolved after IV fluids Hypokalemia -serum potassium is 3 on 05/21/18 and IV potassium given, repeat potassium levels (2) DVT of lower extremity (deep venous thrombosis): Extensive left lower extremity deep venous thrombus on heparin drip started warfarin 5 mg daily on Code Status as per patient's daughter Miladys [phone], the code status is DNR/DNI Subjective Patient not oriented to time and place but pleasant. Denies acute pain or shortness of breath. no vomiting. Physical Exam 2 Vital Signs (Past 24 Hours): Last Vital Signs Temp 37 C 05/21/18 15:12 Pulse 84 05/21/18 15:12 Resp 18 05/21/18 15:12 BP 163/74 H 05/21/18 15:12 Pulse Ox 98 05/21/18 15:12 Constitutional: WD/WN, vitals as above Eyes: PERRL, conjunctivae normal, anicteric sclerae EOM intact bilaterally ENMT: external ear and nose normal, oropharynx normal Neck: normal visual inspection and trachea midline Respiratory: normal respiratory effort, lungs clear to auscultation Cardiovascular: RRR, no murmur, no edema Gastrointestinal (Abdomen): normal bowel sounds, soft, nontender, no hepatosplenomegaly Musculoskeletal: Head/Neck/Chest: normocephalic and head atraumatic Neurologic: PERRL, EOMI, accommodation nl, no face palsy, no dysarthria CN' s II-XI intact bilaterally Psychiatric: Orientation: alert and oriented to person _ (1) DVT of lower extremity (deep venous thrombosis) Affected thrombotic vein of extremity: femoral Chronicity: acute Laterality : left Qualified Code(s): I82.412 - Acute embolism and thrombosis of left femoral vein
[2018-05-21 18:36] LABS: Calcium 8.5 mg/dl (8.5-10.1); Est GFR (African American) 56.3; Est GFR (Non-African American) 48.6
[2018-05-21 19:38] LABS: Partial Thromboplastin Ratio 2.2
[2018-05-21 19:54] LABS: Partial Thromboplastin Time 57.4 Seconds (21.0-31.0)
[2018-05-21] MEDS: HEPARIN STANDARD DEXTROSE 25,000 UNITS/500 ML IV SCH (20:04)
[2018-05-22 06:12] LABS: Hematocrit (blood only) 37.6 % (37-47); Hemoglobin 11.4 g/dL (12.0-16.0); Mean Corpuscular Hgb Conc 30.3 g/dL (32-36); Mean Corpuscular Volume 73.7 fL (80-100); Nucleated RBC # (auto) 0.08 K/uL (0-0); Nucleated RBC % (auto) 0.8 %; Platelet Count 185 K/uL (130-400); RDW Coefficient of Variation 14.7 % (11.5-14.5); RDW Standard Deviation 38.7 fL (36.4-46.3)
[2018-05-22 06:24] LABS: Basophils # (auto) 0.01 K/uL (0-0.2); Basophils % (auto) 0.1 %; Eosinophils # (auto) 0.04 K/uL (0-0.5); Eosinophils % (auto) 0.4 %; Hypochromasia Present; Lymphocytes # (auto) 1.82 K/uL (1.2-3.4); Lymphocytes % (auto) 18.8 %; Monocytes # (auto) 0.81 K/uL (0.11-0.59); Monocytes % (auto) 8.4 %; Neutrophils # (auto) 6.92 K/uL (1.4-6.5); Neutrophils % (auto) 71.3 %; Ovalocytes 1+
[2018-05-22 06:25] LABS: INR 1.3 (0.9-1.1); Partial Thromboplastin Ratio 2.4; Prothrombin Time 12.8 Seconds (9.0-12.0)
[2018-05-22 06:26] LABS: Partial Thromboplastin Time 61.3 Seconds (21.0-31.0)
[2018-05-22 06:26] LABS: Albumin Level 2.2 gm/dl (3.4-5.0); BUN Creatinine Ratio 18.5 (10-20); Calcium 8.2 mg/dl (8.5-10.1); Creatinine Clr Calc Pharmacy 46.9 ml/min; Est GFR (African American) 62.5; Est GFR (Non-African American) 53.9; Potassium 3.7 mmol/L (3.5-5.1)
[2018-05-22 06:28] LABS: Albumin Globulin Ratio 0.5 (0.9-2); Bilirubin,Total 0.4 mg/dl (0.1-1); Globulin 4.6 gm/dl (2.5-4.0); Total Protein 6.8 gm/dl (6.4-8.2)
[2018-05-22] MEDS: MULTIVITAMIN TAB PO SCH (08:03)
--- NOTE | 2018-05-22 09:44 | Nephrology Progress Note ---
Date of Service May 22, 2018 Assessment & Plan (1) Hypernatremia: Patient with hypernatremia due to inadequate free water intake. Na improved to 143 this morning. Encourage free water intake. If patient is unable to take orally consider a PEG tube to guarantee water intake. Renal will sign off. Please call if additional questions. (2) RYAN (acute kidney injury): Due to pre renal azotemia. Cr improved with Iv fluids. Monitor daily. (3) Hypokalemia: Patient with hypokalemia likely due to inadequate intake. Agree with KCL supplements as needed. Subjective Patient unable to give history due to dementia. Na improving to 143 today. Physical Exam 2 Vital Signs (Past 24 Hours): Last Vital Signs Temp 37.3 C 05/22/18 07:15 Pulse 94 H 05/22/18 07:18 Resp 18 05/22/18 07:15 BP 133/76 05/22/18 07:15 Pulse Ox 93 05/22/18 07:15 Physical Exam: General exam: Appears comfortable, no acute distress HEENT: Pupils are equal and reactive to light Neck: No JVD, neck is supple trachea is midline Respiratory system: Clear breath sounds bilaterally. Gastrointestinal: Abdomen is soft, non distended, non tender, bowel sounds are present CVS: Regular rate and rhythm. No murmurs, rubs or gallops Musculoskeletal: No joint or muscle tenderness Extremities: Non tender, 1+ edema on left leg, peripheral pulses are present Neuro: Demented, no tremors, no focal neurological deficits Skin: No rashes
[2018-05-22] MEDS: WARFARIN SOD 5 MG TAB PO SCH (16:19)
--- NOTE | 2018-05-22 18:56 | Hospitalist Progress Note ---
Date of Service May 22, 2018 Assessment & Plan (1) Hypernatremia: Hypernatremia serum sodium 157 on admission decreased to to 145 with D5W stable at 143 off IV fluids (besides the heparin drip) will give low sodium diet History of Dementia (Recently, daughter took her to the neurologist, but she did not stay there for complete examination. Consider consulting neurology while the patient is inpatient. CT of the brain was done in 02/2018 and It showed calcified meningioma on the left frontal convex. Mild mass effect. CT of the head done In ER shows no acute findings) possibly the hypernatremia can contribute to dementia however even with hypernatremia resolved, the patient is a poor historian Fall at home Patient is minimally ambulating since February 2018 as per history PT/OT elevated creatinine kinase downtrended after IV fluids on this admission Acute on chronic kidney disease stage III. Baseline creatinine 1.0, admission creatinine 1.7 RYAN resolved after IV fluids on this admission Hypokalemia -serum potassium is 3 on 05/21/18 and IV potassium given -serum potassium improved and at goal betwen 3.5 to 4 (2) DVT of lower extremity (deep venous thrombosis): Extensive left lower extremity deep venous thrombus on heparin drip started warfarin 5 mg daily on 05/21/18 INR is 1.3, continue warfarin Code Status as per patient's daughter Miladys [phone], the code status is DNR/DNI Subjective Patient seen and examined earlier not oriented to time and place but pleasant. Denies acute pain or shortness of breath. no vomiting. Physical Exam 2 Vital Signs (Past 24 Hours): Last Vital Signs Temp 36.9 C 05/22/18 14:32 Pulse 79 05/22/18 15:13 Resp 18 05/22/18 14:32 BP 141/79 H 05/22/18 14:32 Pulse Ox 97 05/22/18 14:32 Constitutional: WD/WN, vitals as above Eyes: PERRL, conjunctivae normal, anicteric sclerae EOM intact bilaterally ENMT: external ear and nose normal, oropharynx normal Neck: normal visual inspection and trachea midline Respiratory: normal respiratory effort, lungs clear to auscultation Cardiovascular: RRR, no murmur, no edema Gastrointestinal (Abdomen): normal bowel sounds, soft, nontender, no hepatosplenomegaly Musculoskeletal: Head/Neck/Chest: normocephalic and head atraumatic Neurologic: PERRL, EOMI, accommodation nl, no face palsy, no dysarthria CN' s II-XI intact bilaterally Psychiatric: Orientation: alert and oriented to person _ (1) DVT of lower extremity (deep venous thrombosis) Affected thrombotic vein of extremity: femoral Chronicity: acute Laterality : left Qualified Code(s): I82.412 - Acute embolism and thrombosis of left femoral vein
[2018-05-23] MEDS: HEPARIN STANDARD DEXTROSE 25,000 UNITS/500 ML IV SCH (07:30)
[2018-05-23 07:36] LABS: INR 1.3 (0.9-1.1); Partial Thromboplastin Ratio 2.4; Prothrombin Time 13.3 Seconds (9.0-12.0)
[2018-05-23 07:49] LABS: Partial Thromboplastin Time 63.4 Seconds (21.0-31.0)
[2018-05-23 07:50] LABS: BUN Creatinine Ratio 15.4 (10-20); Calcium 8.3 mg/dl (8.5-10.1); Creatinine Clr Calc Pharmacy 52.1 ml/min; Est GFR (Non-African American) 60.4; Potassium 3.6 mmol/L (3.5-5.1)
[2018-05-23] MEDS: MULTIVITAMIN TAB PO SCH (08:24)
[2018-05-23] MEDS: ONDANSETRON INJ 2 MG/ML 2 ML VIAL IV PRN (09:15)
--- NOTE | 2018-05-23 15:57 | Hospitalist Progress Note ---
Date of Service May 23, 2018 Assessment & Plan (1) Hypernatremia: Hypernatremia serum sodium 157 on admission decreased to to 145 with D5W stable at 143 off IV fluids (besides the heparin drip) between 05/21/18 to date low sodium diet for now History of Dementia (Recently, daughter took her to the neurologist, but she did not stay there for complete examination. Consider consulting neurology while the patient is inpatient. CT of the brain was done in 02/2018 and It showed calcified meningioma on the left frontal convex. Mild mass effect. CT of the head done In ER shows no acute findings) possibly the hypernatremia can contribute to dementia however even with hypernatremia resolved, the patient is a poor historian Fall at home Patient is minimally ambulating since February 2018 as per history PT/OT elevated creatinine kinase downtrended after IV fluids on this admission Acute on chronic kidney disease stage III. Baseline creatinine 1.0, admission creatinine 1.7 RYAN resolved after IV fluids on this admission Hypokalemia -serum potassium is 3 on 05/21/18 and IV potassium given -serum potassium improved and at goal betwen 3.5 to 4 (2) DVT of lower extremity (deep venous thrombosis): Extensive left lower extremity deep venous thrombus on heparin drip started warfarin 5 mg daily on 05/21/18 INR 1.3 on 05/22/18 and 05/23/18, continue warfarin Code Status as per patient's daughter Miladys [phone], the code status is DNR/DNI Subjective Patient seen and examined earlier Denies acute pain or shortness of breath. no vomiting. as per nursing patient has been minimally mobile or does not desire to be moved off the bed and that may need samina lift. have encouraged nursing staff to assist her Physical Exam 2 Vital Signs (Past 24 Hours): Last Vital Signs Temp 36.6 C 05/23/18 15:04 Pulse 86 05/23/18 15:39 Resp 16 05/23/18 15:04 BP 116/69 05/23/18 15:04 Pulse Ox 95 05/23/18 15:04 Constitutional: WD/WN, vitals as above Eyes: PERRL, conjunctivae normal, anicteric sclerae EOM intact bilaterally ENMT: external ear and nose normal, oropharynx normal Neck: normal visual inspection and trachea midline Respiratory: normal respiratory effort, lungs clear to auscultation Cardiovascular: RRR, no murmur, no edema Gastrointestinal (Abdomen): normal bowel sounds, soft, nontender, no hepatosplenomegaly Musculoskeletal: Head/Neck/Chest: normocephalic and head atraumatic Neurologic: PERRL, EOMI, accommodation nl, no face palsy, no dysarthria CN' s II-XI intact bilaterally Psychiatric: Orientation: alert and oriented to person _ (1) DVT of lower extremity (deep venous thrombosis) Affected thrombotic vein of extremity: femoral Chronicity: acute Laterality : left Qualified Code(s): I82.412 - Acute embolism and thrombosis of left femoral vein
[2018-05-23] MEDS: WARFARIN SOD 5 MG TAB PO SCH ×2 (16:20→16:22)
[2018-05-24 07:52] LABS: Basophils # (auto) 0.01 K/uL (0-0.2); Basophils % (auto) 0.1 %; Eosinophils # (auto) 0.03 K/uL (0-0.5); Eosinophils % (auto) 0.3 %; Hematocrit (blood only) 35.7 % (37-47); Hemoglobin 10.9 g/dL (12.0-16.0); Immature Granulocytes # (auto) 0.11 K/uL (0.00-0.02); Immature Granulocytes % (auto) 1.2 %; Lymphocytes # (auto) 1.11 K/uL (1.2-3.4); Lymphocytes % (auto) 11.9 %; Mean Corpuscular Hgb Conc 30.5 g/dL (32-36); Mean Corpuscular Volume 73.5 fL (80-100); Monocytes # (auto) 0.96 K/uL (0.11-0.59); Monocytes % (auto) 10.3 %; Neutrophils % (auto) 76.2 %; Platelet Count 154 K/uL (130-400); RDW Coefficient of Variation 14.9 % (11.5-14.5); RDW Standard Deviation 38.6 fL (36.4-46.3); Red Blood Count 4.86 M/uL (4.2-5.4); White Blood Count 9.32 K/uL (4.8-10.8)
[2018-05-24 08:02] LABS: INR 1.4 (0.9-1.1); Prothrombin Time 13.7 Seconds (9.0-12.0)
[2018-05-24 08:24] LABS: BUN Creatinine Ratio 13.5 (10-20); Calcium 8.6 mg/dl (8.5-10.1); Creatinine Clr Calc Pharmacy 50.9 ml/min; Est GFR (African American) 68.2; Est GFR (Non-African American) 58.9; Potassium 3.8 mmol/L (3.5-5.1)
[2018-05-24 08:29] LABS: Hypochromasia Present; Toxic Vacuolation 1+
[2018-05-24] MEDS: MULTIVITAMIN TAB PO SCH (08:34)
[2018-05-24 10:04] LABS: Partial Thromboplastin Ratio 2.5
[2018-05-24] MEDS: ACETAMINOPHEN 325 MG TAB PO PRN ×2 (10:06→16:12)
[2018-05-24] MEDS: HEPARIN STANDARD DEXTROSE 25,000 UNITS/500 ML IV SCH (10:09)
--- NOTE | 2018-05-24 14:51 | Hospitalist Progress Note ---
Date of Service May 24, 2018 Assessment & Plan (1) Hypernatremia: Hypernatremia serum sodium 157 on admission ; decreased to to 145 with D5W on this admission Hypernatremia has resolved: serum sodium stable at 143 off IV fluids (besides the heparin drip) between 05/21/18 to 05/23/18, is 142 on 05/24/18 low sodium diet for now History of Dementia (Recently, daughter took her to the neurologist, but she did not stay there for complete examination. Consider consulting neurology while the patient is inpatient. CT of the brain was done in 02/2018 and It showed calcified meningioma on the left frontal convex. Mild mass effect. CT of the head done In ER shows no acute findings) -possibly the hypernatremia can contribute to dementia however even with hypernatremia resolved, the patient is a poor historian -TSH normal -Check B12, folica acid, RPR to complete the workup of reversible organic causes of dementia; these labs ordered for 05/25/18 Fall at home Patient is minimally ambulating since February 2018 as per history PT/OT elevated creatinine kinase downtrended after IV fluids on this admission, trend CK Acute on chronic kidney disease stage III. Baseline creatinine 1.0, admission creatinine 1.7 RYAN resolved after IV fluids on this admission Hypokalemia -serum potassium is 3 on 05/21/18 and IV potassium given -serum potassium improved and at goal betwen 3.5 to 4 (2) DVT of lower extremity (deep venous thrombosis): Extensive left lower extremity deep venous thrombus on heparin drip started warfarin 5 mg daily on 05/21/18 INR 1.3 on 05/22/18 and 05/23/18, continue warfarin 5 mg INR 1.4 on 05/24/18, continue warfarin 5 mg daily patient may need placement to intermediate facility once the INR is between 2 to 3 on coumadin Code Status as per patient's daughter Miladys [phone], the code status is DNR/DNI Subjective Patient seen and examined earlier Patient had some right neck pain have encouraged nrusing staff to see if patient can go from bed to chair and are waiting PT/OT assessment since so far on this hospital stay that patient has been mostly on the bed. may need samina lift if she cannot move or if volitionally wants to remain on the bed denies headache. denies shortness of breath Physical Exam 2 Vital Signs (Past 24 Hours): Last Vital Signs Temp 36.9 C 05/24/18 07:48 Pulse 79 05/24/18 07:48 Resp 18 05/24/18 07:48 BP 122/64 05/24/18 07:48 Pulse Ox 98 05/24/18 07:48 Constitutional: WD/WN, vitals as above Eyes: PERRL, conjunctivae normal, anicteric sclerae EOM intact bilaterally ENMT: external ear and nose normal, oropharynx normal Neck: normal visual inspection and trachea midline Respiratory: normal respiratory effort, lungs clear to auscultation Cardiovascular: Rate/Rhythm: regular rate and regular rhythm Extremities: + edema (the left leg edema is consistent with the diagnosis of left leg DVT) Gastrointestinal (Abdomen): normal bowel sounds, soft, nontender, no hepatosplenomegaly Musculoskeletal: Head/Neck/Chest: normocephalic and head atraumatic Neurologic: PERRL, EOMI, accommodation nl, no face palsy, no dysarthria CN' s II-XI intact bilaterally Psychiatric: Orientation: alert and oriented to person _ (1) DVT of lower extremity (deep venous thrombosis) Affected thrombotic vein of extremity: femoral Chronicity: acute Laterality : left Qualified Code(s): I82.412 - Acute embolism and thrombosis of left femoral vein
[2018-05-24] MEDS: WARFARIN SOD 5 MG TAB PO SCH (16:12)
[2018-05-25 06:48] LABS: Basophils # (auto) 0.01 K/uL (0-0.2); Basophils % (auto) 0.1 %; Eosinophils # (auto) 0.09 K/uL (0-0.5); Eosinophils % (auto) 1.1 %; Hematocrit (blood only) 37.6 % (37-47); Hemoglobin 11.4 g/dL (12.0-16.0); Immature Granulocytes # (auto) 0.12 K/uL (0.00-0.02); Immature Granulocytes % (auto) 1.4 %; Lymphocytes # (auto) 1.75 K/uL (1.2-3.4); Lymphocytes % (auto) 20.8 %; Mean Corpuscular Hgb Conc 30.3 g/dL (32-36); Monocytes # (auto) 0.71 K/uL (0.11-0.59); Monocytes % (auto) 8.4 %; Neutrophils # (auto) 5.73 K/uL (1.4-6.5); Neutrophils % (auto) 68.2 %; Platelet Count 183 K/uL (130-400); RDW Coefficient of Variation 15.2 % (11.5-14.5); RDW Standard Deviation 39.5 fL (36.4-46.3); Red Blood Count 5.08 M/uL (4.2-5.4); White Blood Count 8.41 K/uL (4.8-10.8)
[2018-05-25 07:05] LABS: Partial Thromboplastin Ratio 2.8; Prothrombin Time 28.6 Seconds (9.0-12.0)
[2018-05-25 07:12] LABS: Echinocytes 1+; Hypochromasia Present
[2018-05-25 07:23] LABS: BUN Creatinine Ratio 11.8 (10-20); Calcium 8.7 mg/dl (8.5-10.1); Creatinine Clr Calc Pharmacy 53.3 ml/min; Est GFR (Non-African American) 61.2; Potassium 3.9 mmol/L (3.5-5.1)
[2018-05-25 07:30] LABS: Partial Thromboplastin Time 74.1 Seconds (21.0-31.0)
[2018-05-25 07:39] LABS: Folate (Folic Acid) 11.57 ng/ml (>5.38)
[2018-05-25] MEDS: MULTIVITAMIN TAB PO SCH (08:25)
[2018-05-25] MEDS: HEPARIN STANDARD DEXTROSE 25,000 UNITS/500 ML IV SCH ×2 (09:06→22:11)
[2018-05-25 15:04] LABS: Partial Thromboplastin Time 76.9 Seconds (21.0-31.0)
[2018-05-25] MEDS: WARFARIN SOD 5 MG TAB PO SCH (16:28)
--- NOTE | 2018-05-25 17:50 | Hospitalist Progress Note ---
Date of Service May 25, 2018 Assessment & Plan (1) Hypernatremia: Hypernatremia serum sodium 157 on admission ; decreased to to 145 with D5W on this admission Hypernatremia has resolved: serum sodium stable at 143 off IV fluids (besides the heparin drip) between 05/21/18 to 05/23/18, is 142 on 05/24/18 (2) Dementia: History of dementia worsened with recent acute hypernatremia likely secondary to poor p.o. intake of free water. The patient was found lying on the floor at home confused and could not sit up. Family had reported patient refusing to get up and drink for 4 days. Placement will be important to continue good hydration efforts and overall care of patient. It is unclear at this time whether she has delirium or not as she is not responding consistently to my questioning today. Will discuss her baseline with family. She is high risk for delirium. (3) CKD (chronic kidney disease), stage III: She is at her baseline with resolution of RYAN on admission. (4) DVT of lower extremity (deep venous thrombosis): Extensive acute left lower extremity deep venous thrombus. On heparin with bridge to Coumadin. INR therapeutic at 3 today. Continue 5 mg daily and trend INR in the morning. Will adjust warfarin dosing prior to departure. Will need follow-up with anticoagulant in clinic upon discharge. Dispo-likely placement to facility on discharge DNR Bibi Adair DO [facility] Hospitalist Subjective 77-year-old female with dementia presents with acute hypernatremia. Despite reversal patient is still disoriented. Review of systems is limited secondary to dementia. Patient denies any pain today. Per nursing report patient is tolerating p.o. when she is prompted. Physical Exam 2 Vital Signs (Past 24 Hours): Last Vital Signs Temp 36.8 C 05/25/18 15:00 Pulse 82 05/25/18 15:00 Resp 18 05/25/18 15:00 BP 120/76 05/25/18 15:00 Pulse Ox 97 05/25/18 15:00 CONSTITUTIONAL: WNWD, vitals as above, generally well-appearing EYES: PERRL, normal conjuctivae, no scleral icterus ENT: MMM RESPIRATORY: clear to auscultation bilaterally, no crackles, rales or wheezes, normal respiratory effort CARDIOVASCULAR: regular rate and rhythm, S1 and 2 heard without murmurs, gallops or rubs, no JVD, no peripheral edema GASTROINTESTINAL: normal bowel sounds, soft, nontender, nondistended MUSCULOSKELETAL: appears generally weak however, exam is limited as patient is demented at baseline, head is normocephalic and atraumatic, neck supple SKIN: warm and dry NEUROLOGIC: abnormal cognition limiting exam. PSYCHIATRIC: alert and oriented to self only. States that she is in [place], [place] and doesn't know the date. Results & Data Laboratory Results Short CBC 05/25/18 Range/Units 06:21 WBC 8.41 (4.8-10.8) K/uL Hgb 11.4 L (12.0-16.0) g/dL Hct 37.6 (37-47) % Plt Count 183 (130-400) K/uL BMP 05/25/18 06:21 Sodium 142 Potassium 3.9 Chloride 108 H Carbon Dioxide 27 BUN 11 Creatinine 0.90 Glucose 113 H Calcium 8.7 Cardiac Enzymes 05/25/18 Range/Units 06:21 Total Creatine Kinase 512 H (26-192) U/L Medications Administered Current Inpatient Medications Acetaminophen (Tylenol) 650 mg PO Q4H PRN PRN Reason: Pain or Fever Stop: 06/19/18 03:15 Last Admin: 05/24/18 16:12 Dose: 650 mg Heparin Sodium (Beef Lung) (Heparin Sod 10 Unit/Ml Flush) 5 ml FLUSH PRN PRN PRN Reason: Flush Stop: 06/19/18 08:47 Last Admin: 05/22/18 06:05 Dose: 5 ml Heparin Sodium/Dextrose (Heparin Sodium/Dextrose) 25,000 units in 500 mls @ 11 mls/hr IV .Q24H [facility]; Protocol Stop: 06/19/18 08:47 Last Titration: 05/25/18 15:06 Dose: 550 units/hr, 11 mls/hr Sodium Chloride (Nss 1000ml) 1,000 mls @ 100 mls/hr IV .Q10H [facility] Stop: 05/26/18 13:59 Multivitamins (Multivitamin) 1 tab PO DAILY [facility] Stop: 06/19/18 08:59 Last Admin: 05/25/18 08:25 Dose: 1 tab Nitroglycerin (Nitrostat) 0.4 mg SL UD PRN PRN Reason: Chest Pain Stop: 06/19/18 03:15 Ondansetron HCl (Zofran) 4 mg IV Q6H PRN PRN Reason: Nausea Stop: 06/19/18 03:15 Last Admin: 05/23/18 09:15 Dose: 4 mg Warfarin Sodium (Coumadin) 5 mg PO DAILY@1600 [facility] Stop: 06/20/18 15:59 Last Admin: 05/25/18 16:28 Dose: 5 mg _ (1) DVT of lower extremity (deep venous thrombosis) Affected thrombotic vein of extremity: femoral Chronicity: acute Laterality : left Qualified Code(s): I82.412 - Acute embolism and thrombosis of left femoral vein
[2018-05-25] MEDS: SODIUM CHLORIDE 0.9% 1000ML 1,000 ML IV SCH (18:49)
[2018-05-25 21:32] LABS: Partial Thromboplastin Time 76.9 Seconds (21.0-31.0)
[2018-05-26 05:20] LABS: Partial Thromboplastin Time 53.2 Seconds (21.0-31.0)
[2018-05-26] MEDS: SODIUM CHLORIDE 0.9% 1000ML 1,000 ML IV SCH (05:39)
[2018-05-26] MEDS: MULTIVITAMIN TAB PO SCH (07:59)
[2018-05-26 10:42] LABS: Prothrombin Time 28.1 Seconds (9.0-12.0)
[2018-05-26] MEDS: NYSTATIN SUSP 500,000 U/5 ML UDC PO SCH ×3 (14:10→22:21)
--- NOTE | 2018-05-26 16:12 | Hospitalist Progress Note ---
Date of Service May 26, 2018 Assessment & Plan (1) DVT of lower extremity (deep venous thrombosis): Extensive acute left lower extremity deep venous thrombus. On heparin with bridge to Coumadin. INR therapeutic at 3 today- will stop heparin drip. Continue 5 mg daily and trend INR in the morning. Will adjust warfarin dosing prior to departure. Will need follow-up with anticoagulant in clinic upon discharge. (2) Thrush, oral: Nystatin started. Will need to continue for ten day course. (3) Hypernatremia: serum sodium 157 on admission ; decreased to to 145 with D5W on this admission. Hypernatremia has resolved (4) Dementia: History of dementia worsened with recent acute hypernatremia likely secondary to poor p.o. intake of free water. The patient was found lying on the floor at home confused and could not sit up. Family had reported patient refusing to get up and drink for 4 days. Placement will be important to continue good hydration efforts and overall care of patient. Will discuss her baseline with family. She is high risk for delirium. (5) CKD (chronic kidney disease), stage III: She is at her baseline with resolution of RYAN on admission. Dispo-likely placement to facility on discharge DNR Bibi Adair DO [facility] Hospitalist Subjective 77-year-old female with known dementia presented with hypernatremia. Sodium has been corrected for several days and patient is likely at baseline mental status. Review of systems is unobtainable secondary to dementia. Per nurses patient is tolerating food and she is somewhat able to follow instructions. Verbal interaction is limited. Physical Exam 2 Vital Signs (Past 24 Hours): Last Vital Signs Temp 36.5 C 05/26/18 15:08 Pulse 67 05/26/18 15:08 Resp 19 05/26/18 15:08 BP 147/83 H 05/26/18 15:08 Pulse Ox 99 05/26/18 15:08 CONSTITUTIONAL: WNWD, vitals as above, generally well-appearing EYES: PERRL, normal conjuctivae, no scleral icterus ENT: MMM, thrush noted on tongue today. RESPIRATORY: clear to auscultation bilaterally, no crackles, rales or wheezes, normal respiratory effort -limited exam as patient cannot follow instruction. CARDIOVASCULAR: regular rate and rhythm, S1 and 2 heard without murmurs, gallops or rubs, no JVD, no peripheral edema GASTROINTESTINAL: normal bowel sounds, soft, nontender, nondistended MUSCULOSKELETAL: appears generally weak however, exam is limited as patient is demented at baseline and cannot follow instructions, head is normocephalic and atraumatic SKIN: warm and dry NEUROLOGIC: abnormal cognition limiting exam. PSYCHIATRIC: alert and oriented to self only. No delirium noted. Results & Data Laboratory Results Cardiac Enzymes 05/26/18 Range/Units 10:12 Total Creatine Kinase 203 H (26-192) U/L Medications Administered Current Inpatient Medications Acetaminophen (Tylenol) 650 mg PO Q4H PRN PRN Reason: Pain or Fever Stop: 06/19/18 03:15 Last Admin: 05/24/18 16:12 Dose: 650 mg Heparin Sodium/Dextrose (Heparin Sodium/Dextrose) 25,000 units in 500 mls @ 9 mls/hr IV .Q24H [facility]; Protocol Stop: 06/19/18 08:47 Last Titration: 05/26/18 05:36 Dose: 450 units/hr, 9 mls/hr Multivitamins (Multivitamin) 1 tab PO DAILY [facility] Stop: 06/19/18 08:59 Last Admin: 05/26/18 07:59 Dose: 1 tab Nitroglycerin (Nitrostat) 0.4 mg SL UD PRN PRN Reason: Chest Pain Stop: 06/19/18 03:15 Nystatin (Mycostatin) 5 ml PO QID [facility] Stop: 06/05/18 12:59 Last Admin: 05/26/18 16:22 Dose: 5 ml Ondansetron HCl (Zofran) 4 mg IV Q6H PRN PRN Reason: Nausea Stop: 06/19/18 03:15 Last Admin: 05/23/18 09:15 Dose: 4 mg Warfarin Sodium (Coumadin) 5 mg PO DAILY@1600 [facility] Stop: 06/20/18 15:59 Last Admin: 05/26/18 16:21 Dose: 5 mg _ (1) DVT of lower extremity (deep venous thrombosis) Affected thrombotic vein of extremity: femoral Chronicity: acute Laterality : left Qualified Code(s): I82.412 - Acute embolism and thrombosis of left femoral vein
[2018-05-26] MEDS: WARFARIN SOD 5 MG TAB PO SCH (16:21)
[2018-05-27 07:01] LABS: Prothrombin Time 36.2 Seconds (9.0-12.0)
[2018-05-27 07:08] LABS: INR 3.9 (0.9-1.1)
[2018-05-27 10:23] LABS: Partial Thromboplastin Time 51.8 Seconds (21.0-31.0)
[2018-05-27] MEDS: NYSTATIN SUSP 500,000 U/5 ML UDC PO SCH ×4 (10:27→20:09)
[2018-05-27] MEDS: MULTIVITAMIN TAB PO SCH (10:27)
--- NOTE | 2018-05-27 15:08 | Hospitalist Progress Note ---
Date of Service May 27, 2018 Assessment & Plan (1) DVT of lower extremity (deep venous thrombosis): Extensive acute left lower extremity deep venous thrombus. On heparin with bridge to Coumadin. INR therapeutic.. Heparin drip was stopped. Continued 2.5 mg daily and trend INR in the morning. Hold current warfarin as today's INR was 3.9 Will need follow-up with anticoagulant in clinic upon discharge. (2) Thrush, oral: Nystatin started. Will need to continue for ten day course. (3) Hypernatremia: serum sodium 157 on admission ; decreased to to 145 with D5W on this admission. Hypernatremia has resolved (4) Dementia: History of dementia worsened with recent acute hypernatremia likely secondary to poor p.o. intake of free water. The patient was found lying on the floor at home confused and could not sit up. Family had reported patient refusing to get up and drink for 4 days. Placement will be important to continue good hydration efforts and overall care of patient. Will discuss her baseline with family. She is high risk for delirium. (5) CKD (chronic kidney disease), stage III: She is at her baseline with resolution of RYAN on admission. Dispo-likely placement to facility on discharge DNR Bibi Adair DO [facility] Hospitalist Subjective 77-year-old female with known dementia presented with hypernatremia. Sodium has been corrected for several days and patient is likely at baseline mental status. Review of systems is unobtainable secondary to dementia. Per nurses patient is tolerating food and she is somewhat able to follow instructions. Verbal interaction is limited. Daughter Miladys was at the bedside today and we discussed the plan. She states her mom is at baseline mental status today. She is applying for medical assistance for her mother. Physical Exam 2 Vital Signs (Past 24 Hours): Last Vital Signs Temp 37.0 C 05/27/18 08:00 Pulse 74 05/27/18 08:00 Resp 18 05/27/18 08:00 BP 151/83 H 05/27/18 08:00 Pulse Ox 98 05/27/18 08:00 CONSTITUTIONAL: WNWD, vitals as above, generally well-appearing EYES: PERRL, normal conjuctivae, no scleral icterus ENT: MMM RESPIRATORY: clear to auscultation bilaterally, no crackles, rales or wheezes, normal respiratory effort CARDIOVASCULAR: regular rate and rhythm, S1 and 2 heard without murmurs, gallops or rubs, no JVD, no peripheral edema GASTROINTESTINAL: normal bowel sounds, soft, nontender, nondistended MUSCULOSKELETAL: appears generally weak however, exam is limited as patient is demented at baseline, head is normocephalic and atraumatic SKIN: warm and dry NEUROLOGIC: abnormal cognition limiting exam. PSYCHIATRIC: alert and oriented to self only. No delirium noted. Results & Data Medications Administered Current Inpatient Medications Acetaminophen (Tylenol) 650 mg PO Q4H PRN PRN Reason: Pain or Fever Stop: 06/19/18 03:15 Last Admin: 05/24/18 16:12 Dose: 650 mg Heparin Sodium (Beef Lung) (Heparin Sod 10 Unit/Ml Flush) 5 ml FLUSH PRN PRN PRN Reason: PROTOCOL Stop: 06/26/18 21:30 Multivitamins (Multivitamin) 1 tab PO DAILY [facility] Stop: 06/19/18 08:59 Last Admin: 05/27/18 10:27 Dose: 1 tab Nitroglycerin (Nitrostat) 0.4 mg SL UD PRN PRN Reason: Chest Pain Stop: 06/19/18 03:15 Nystatin (Mycostatin) 5 ml PO QID [facility] Stop: 06/05/18 12:59 Last Admin: 05/27/18 20:09 Dose: 5 ml Ondansetron HCl (Zofran) 4 mg IV Q6H PRN PRN Reason: Nausea Stop: 06/19/18 03:15 Last Admin: 05/23/18 09:15 Dose: 4 mg Warfarin Sodium (Coumadin) 2.5 mg PO DAILY@1600 [facility] Stop: 06/26/18 15:59 _ (1) DVT of lower extremity (deep venous thrombosis) Affected thrombotic vein of extremity: femoral Chronicity: acute Laterality : left Qualified Code(s): I82.412 - Acute embolism and thrombosis of left femoral vein
[2018-05-28 07:35] LABS: Hematocrit (blood only) 34.7 % (37-47); Hemoglobin 10.7 g/dL (12.0-16.0); Mean Corpuscular Hgb Conc 30.8 g/dL (32-36); Mean Corpuscular Volume 72.4 fL (80-100); Platelet Count 169 K/uL (130-400); RDW Coefficient of Variation 15.3 % (11.5-14.5); RDW Standard Deviation 39.6 fL (36.4-46.3); Red Blood Count 4.79 M/uL (4.2-5.4); White Blood Count 6.03 K/uL (4.8-10.8)
[2018-05-28 07:41] LABS: INR 2.7 (0.9-1.1); Prothrombin Time 25.8 Seconds (9.0-12.0)
[2018-05-28 07:53] LABS: BUN Creatinine Ratio 10.6 (10-20); Calcium 8.3 mg/dl (8.5-10.1); Creatinine Clr Calc Pharmacy 90.5 ml/min; Est GFR (African American) 105.4; Est GFR (Non-African American) 90.9; Potassium 3.4 mmol/L (3.5-5.1)
[2018-05-28] MEDS: NYSTATIN SUSP 500,000 U/5 ML UDC PO SCH ×4 (08:48→21:33)
[2018-05-28] MEDS: MULTIVITAMIN TAB PO SCH (08:48)
[2018-05-28] MEDS ORDERED: POTASSIUM CHLORIDE 20 MEQ TABCR PO STA (09:49)
--- NOTE | 2018-05-28 16:13 | Hospitalist Progress Note ---
Date of Service May 28, 2018 Assessment & Plan (1) DVT of lower extremity (deep venous thrombosis): Extensive acute left lower extremity deep venous thrombus. Coumadin helf yesterday 2/2 supratherapeutic INR but is now within range (2 to 3). Therefore , will restart coumadin today at lower dose of 2.5mg PO daily. No swelling of leg or pain at this time. (2) Thrush, oral: Nystatin started this admission. Will need to continue for ten day course. (3) Hypernatremia: serum sodium 157 on admission 2/2 lack of free water intake/access at home ; Hypernatremia has resolved (4) Dementia: Improved MS and energy level when family was here yesterday, however, appears more withdrawn today refusing to talk to me or answer questions. She looks away and nods her head. Tolerating PO per nursing staff. She is at baseline. Awaiting placement. (5) CKD (chronic kidney disease), stage III: She is at her baseline with resolution of RYAN on admission. Dispo-likely placement to facility on discharge DNR DO [facility] Hospitalist Subjective 77-year-old female with known dementia presented with hypernatremia. Sodium has been corrected for several days and patient is likely at baseline mental status. Review of systems is unobtainable secondary to dementia. Per nurses patient is tolerating food and she is somewhat able to follow instructions. Verbal interaction is limited. Physical Exam 2 Vital Signs (Past 24 Hours): Last Vital Signs Temp 36.9 C 05/28/18 11:25 Pulse 72 05/28/18 16:03 Resp 16 05/28/18 11:25 BP 128/79 05/28/18 16:03 Pulse Ox 98 05/28/18 11:25 CONSTITUTIONAL: WNWD, vitals as above, withdrawn EYES: she wouldn't open her eyes for me. ENT: MMM RESPIRATORY: clear to auscultation bilaterally, no crackles, rales or wheezes, normal respiratory effort CARDIOVASCULAR: regular rate and rhythm, S1 and 2 heard without murmurs, gallops or rubs, no JVD, no peripheral edema GASTROINTESTINAL: normal bowel sounds, soft, nontender, nondistended MUSCULOSKELETAL: appears generally weak however, exam is limited as patient is demented at baseline, head is normocephalic and atraumatic SKIN: warm and dry NEUROLOGIC: abnormal cognition limiting exam. PSYCHIATRIC: alert and oriented to self only. No delirium noted. Results & Data Laboratory Results Short CBC 05/28/18 Range/Units 07:24 WBC 6.03 (4.8-10.8) K/uL Hgb 10.7 L (12.0-16.0) g/dL Hct 34.7 L (37-47) % Plt Count 169 (130-400) K/uL BMP 05/28/18 07:24 Sodium 140 Potassium 3.4 L Chloride 107 Carbon Dioxide 25 BUN 6 L Creatinine 0.53 L Glucose 103 H Calcium 8.3 L Medications Administered Current Inpatient Medications Acetaminophen (Tylenol) 650 mg PO Q4H PRN PRN Reason: Pain or Fever Stop: 06/19/18 03:15 Last Admin: 05/24/18 16:12 Dose: 650 mg Heparin Sodium (Beef Lung) (Heparin Sod 10 Unit/Ml Flush) 5 ml FLUSH PRN PRN PRN Reason: PROTOCOL Stop: 06/26/18 21:30 Last Admin: 05/28/18 18:17 Dose: 10 ml Multivitamins (Multivitamin) 1 tab PO DAILY [facility] Stop: 06/19/18 08:59 Last Admin: 05/28/18 08:48 Dose: 1 tab Nitroglycerin (Nitrostat) 0.4 mg SL UD PRN PRN Reason: Chest Pain Stop: 06/19/18 03:15 Nystatin (Mycostatin) 5 ml PO QID [facility] Stop: 06/05/18 12:59 Last Admin: 05/28/18 21:33 Dose: 5 ml Ondansetron HCl (Zofran) 4 mg IV Q6H PRN PRN Reason: Nausea Stop: 06/19/18 03:15 Last Admin: 05/23/18 09:15 Dose: 4 mg Warfarin Sodium (Coumadin) 2.5 mg PO DAILY@1600 [facility] Stop: 06/26/18 15:59 Last Admin: 05/28/18 17:28 Dose: 2.5 mg _ (1) DVT of lower extremity (deep venous thrombosis) Affected thrombotic vein of extremity: femoral Chronicity: acute Laterality : left Qualified Code(s): I82.412 - Acute embolism and thrombosis of left femoral vein
[2018-05-28] MEDS: WARFARIN SOD 2.5 MG TAB PO SCH (17:28)
[2018-05-29] MEDS: ONDANSETRON INJ 2 MG/ML 2 ML VIAL IV PRN (04:23)
[2018-05-29 07:21] LABS: Prothrombin Time 28.8 Seconds (9.0-12.0)
[2018-05-29] MEDS: NYSTATIN SUSP 500,000 U/5 ML UDC PO SCH ×4 (10:07→21:33)
[2018-05-29] MEDS: MULTIVITAMIN TAB PO SCH (10:07)
[2018-05-29] MEDS ORDERED: BISACODYL 10 MG SUPP PR STA (13:47)
--- NOTE | 2018-05-29 13:47 | Hospitalist Progress Note ---
Date of Service May 29, 2018 Assessment & Plan (1) DVT of lower extremity (deep venous thrombosis): Extensive acute left lower extremity deep venous thrombus. Cont coumadin 2.5, INR at goal. No swelling of leg or pain at this time. (2) Thrush, oral: Nystatin started this admission. Will need to continue for ten day course. (3) Hypernatremia: serum sodium 157 on admission 2/2 lack of free water intake/access at home ; Hypernatremia has resolved. Cont assistance with meals. (4) Dementia: Mental status is at baseline. Awaiting placement. (5) CKD (chronic kidney disease), stage III: She is at her baseline with resolution of RYAN on admission. Dispo-likely placement to facility on discharge DNR Bibi Adair DO [facility] Hospitalist Subjective Awaiting placement . ROS is unobtainable 2/2 dementia. Physical Exam 2 Vital Signs (Past 24 Hours): Last Vital Signs Temp 37.1 C 05/29/18 07:55 Pulse 100 H 05/29/18 07:55 Resp 20 05/29/18 07:55 BP 145/54 H 05/29/18 07:55 Pulse Ox 97 05/29/18 07:55 CONSTITUTIONAL: WNWD, vitals as above, sitting up in bed, refusing to lie back EYES: opens eyes but head is down and cannot evaluate. ENT: cannot evaluate mouth, pt refuses RESPIRATORY: clear to auscultation bilaterally, no crackles, rales or wheezes, normal respiratory effort CARDIOVASCULAR: regular rate and rhythm, S1 and 2 heard without murmurs, gallops or rubs, no peripheral edema GASTROINTESTINAL: normal bowel sounds, soft, nontender, nondistended MUSCULOSKELETAL: appears generally weak however, exam is limited as patient is demented at baseline, head is normocephalic and atraumatic SKIN: warm and dry NEUROLOGIC: abnormal cognition limiting exam. PSYCHIATRIC: alert and oriented to self only. No delirium noted. Results & Data Medications Administered Current Inpatient Medications Acetaminophen (Tylenol) 650 mg PO Q4H PRN PRN Reason: Pain or Fever Stop: 06/19/18 03:15 Last Admin: 05/24/18 16:12 Dose: 650 mg Heparin Sodium (Beef Lung) (Heparin Sod 10 Unit/Ml Flush) 5 ml FLUSH PRN PRN PRN Reason: PROTOCOL Stop: 06/26/18 21:30 Last Admin: 05/29/18 04:23 Dose: 5 ml Multivitamins (Multivitamin) 1 tab PO DAILY [facility] Stop: 06/19/18 08:59 Last Admin: 05/29/18 10:07 Dose: Not Given Nitroglycerin (Nitrostat) 0.4 mg SL UD PRN PRN Reason: Chest Pain Stop: 06/19/18 03:15 Nystatin (Mycostatin) 5 ml PO QID [facility] Stop: 06/05/18 12:59 Last Admin: 05/29/18 21:33 Dose: 5 ml Ondansetron HCl (Zofran) 4 mg IV Q6H PRN PRN Reason: Nausea Stop: 06/19/18 03:15 Last Admin: 05/29/18 04:23 Dose: 4 mg Polyethylene Glycol (Miralax Powder Packet) 17 gm PO DAILY [facility] Stop: 06/28/18 13:59 Last Admin: 05/29/18 14:30 Dose: 17 gm Warfarin Sodium (Coumadin) 2.5 mg PO DAILY@1600 [facility] Stop: 06/26/18 15:59 Last Admin: 05/29/18 16:44 Dose: 2.5 mg _ (1) DVT of lower extremity (deep venous thrombosis) Affected thrombotic vein of extremity: femoral Chronicity: acute Laterality : left Qualified Code(s): I82.412 - Acute embolism and thrombosis of left femoral vein
[2018-05-29] MEDS: POLYETHYLENE (MIRALAX) 17 GM PACK PO SCH (14:30)
[2018-05-29] MEDS: WARFARIN SOD 2.5 MG TAB PO SCH (16:44)
[2018-05-30 05:24] LABS: Prothrombin Time 44.8 Seconds (9.0-12.0)
[2018-05-30 05:37] LABS: INR 4.9 (0.9-1.1)
[2018-05-30] MEDS: NYSTATIN SUSP 500,000 U/5 ML UDC PO SCH ×4 (09:33→20:22)
[2018-05-30] MEDS: MULTIVITAMIN TAB PO SCH (09:33)
[2018-05-30] MEDS: POLYETHYLENE (MIRALAX) 17 GM PACK PO SCH (09:33)
--- NOTE | 2018-05-30 14:30 | Hospitalist Progress Note ---
Date of Service May 30, 2018 Assessment & Plan (1) DVT of lower extremity (deep venous thrombosis): Extensive acute left lower extremity deep venous thrombus. INR supratherapeutic and coumadin was held. No swelling of leg or pain at this time. No bleeding issues. (2) Thrush, oral: Nystatin started this admission. Will need to continue for ten day course. (3) Hypernatremia: serum sodium 157 on admission 2/2 lack of free water intake/access at home ; Hypernatremia has resolved. Cont assistance with meals. (4) Dementia: Mental status is at baseline. Awaiting placement. (5) CKD (chronic kidney disease), stage III: She is at her baseline with resolution of RYAN on admission. Dispo-likely placement to facility on discharge DNR Bibi Aadir DO [facility] Hospitalist Subjective 69-year-old female with dementia admitted for hyponatremia and acute DVT. She denies any pain today. She is answering questions yes and no however, has baseline dementia and questionable orientation. She is not delirious. She is tolerating p.o. Physical Exam 2 Vital Signs (Past 24 Hours): Last Vital Signs Temp 36.9 C 05/30/18 07:53 Pulse 100 H 05/30/18 07:53 Resp 20 05/30/18 07:53 BP 131/85 05/30/18 07:53 Pulse Ox 97 05/30/18 07:53 CONSTITUTIONAL: WNWD, vitals as above, sitting up in bed EYES: PERRL, normal conjunctivae, non-icteric sclerae ENT: cannot evaluate mouth, pt refuses RESPIRATORY: clear to auscultation bilaterally, no crackles, rales or wheezes, normal respiratory effort CARDIOVASCULAR: regular rate and rhythm, S1 and 2 heard without murmurs, gallops or rubs, no peripheral edema GASTROINTESTINAL: normal bowel sounds, soft, nontender, nondistended MUSCULOSKELETAL: appears generally weak however, exam is limited as patient is demented at baseline, head is normocephalic and atraumatic SKIN: warm and dry NEUROLOGIC: abnormal cognition limiting exam. PSYCHIATRIC: alert and oriented to self only. No delirium noted. Results & Data Medications Administered Current Inpatient Medications Acetaminophen (Tylenol) 650 mg PO Q4H PRN PRN Reason: Pain or Fever Stop: 06/19/18 03:15 Last Admin: 05/24/18 16:12 Dose: 650 mg Heparin Sodium (Beef Lung) (Heparin Sod 10 Unit/Ml Flush) 5 ml FLUSH PRN PRN PRN Reason: PROTOCOL Stop: 06/26/18 21:30 Last Admin: 05/29/18 04:23 Dose: 5 ml Multivitamins (Multivitamin) 1 tab PO DAILY [facility] Stop: 06/19/18 08:59 Last Admin: 05/30/18 09:33 Dose: 1 tab Nitroglycerin (Nitrostat) 0.4 mg SL UD PRN PRN Reason: Chest Pain Stop: 06/19/18 03:15 Nystatin (Mycostatin) 5 ml PO QID [facility] Stop: 06/05/18 12:59 Last Admin: 05/30/18 17:12 Dose: 5 ml Ondansetron HCl (Zofran) 4 mg IV Q6H PRN PRN Reason: Nausea Stop: 06/19/18 03:15 Last Admin: 05/29/18 04:23 Dose: 4 mg Polyethylene Glycol (Miralax Powder Packet) 17 gm PO DAILY [facility] Stop: 06/28/18 13:59 Last Admin: 05/30/18 09:33 Dose: 17 gm Warfarin Sodium (Coumadin) 2.5 mg PO DAILY@1600 [facility] Stop: 06/26/18 15:59 Last Admin: 05/29/18 16:44 Dose: 2.5 mg _ (1) DVT of lower extremity (deep venous thrombosis) Affected thrombotic vein of extremity: femoral Chronicity: acute Laterality : left Qualified Code(s): I82.412 - Acute embolism and thrombosis of left femoral vein
[2018-05-30] MEDS: ACETAMINOPHEN 325 MG TAB PO PRN (20:22)
[2018-05-31 06:39] LABS: INR 3.3 (0.9-1.1); Prothrombin Time 31.4 Seconds (9.0-12.0)
[2018-05-31] MEDS: MULTIVITAMIN TAB PO SCH (08:24)
[2018-05-31] MEDS: NYSTATIN SUSP 500,000 U/5 ML UDC PO SCH ×4 (08:24→20:12)
[2018-05-31] MEDS: POLYETHYLENE (MIRALAX) 17 GM PACK PO SCH (08:24)
--- NOTE | 2018-05-31 15:42 | Hospitalist Progress Note ---
Date of Service May 31, 2018 Assessment & Plan (1) DVT of lower extremity (deep venous thrombosis): Extensive acute left lower extremity deep venous thrombus. INR supratherapeutic so continued to hold coumadin. No swelling of leg or pain at this time. No bleeding issues. (2) Thrush, oral: Nystatin started this admission. Will need to continue for ten day course. (3) Hypernatremia: serum sodium 157 on admission 2/2 lack of free water intake/access at home ; Hypernatremia has resolved. Cont assistance with meals. (4) Dementia: Mental status is at baseline. Awaiting placement. (5) CKD (chronic kidney disease), stage III: She is at her baseline with resolution of RYAN on admission. Dispo-to [facility], awaiting insurance to go through first. DNR Bibi Adair DO [facility] Hospitalist Subjective +sleeping ROS cannot be obtained 2/2 dementia and somnolence. Physical Exam 2 Vital Signs (Past 24 Hours): Last Vital Signs Temp 37.0 C 05/31/18 15:30 Pulse 87 05/31/18 15:30 Resp 20 05/31/18 15:30 BP 113/69 05/31/18 15:30 Pulse Ox 96 05/31/18 15:30 CONSTITUTIONAL: WNWD, vitals as above, pt sleeping, wakes up and nods but does not verbally communicate EYES: could not evaluate as patient sleeping. ENT: cannot evaluate mouth, pt refuses RESPIRATORY: clear to auscultation bilaterally, no crackles, rales or wheezes, normal respiratory effort CARDIOVASCULAR: regular rate and rhythm, S1 and 2 heard without murmurs, gallops or rubs, no peripheral edema GASTROINTESTINAL: normal bowel sounds, soft, nontender, nondistended MUSCULOSKELETAL: appears generally weak however, exam is limited as patient is demented at baseline, head is normocephalic and atraumatic SKIN: warm and dry NEUROLOGIC: abnormal cognition limiting exam. PSYCHIATRIC: alert and oriented to self only. No delirium noted. Results & Data Medications Administered Current Inpatient Medications Acetaminophen (Tylenol) 650 mg PO Q4H PRN PRN Reason: Pain or Fever Stop: 06/19/18 03:15 Last Admin: 05/30/18 20:22 Dose: 650 mg Heparin Sodium (Beef Lung) (Heparin Sod 10 Unit/Ml Flush) 5 ml FLUSH PRN PRN PRN Reason: PROTOCOL Stop: 06/26/18 21:30 Last Admin: 05/29/18 04:23 Dose: 5 ml Multivitamins (Multivitamin) 1 tab PO DAILY [facility] Stop: 06/19/18 08:59 Last Admin: 05/31/18 08:24 Dose: 1 tab Nitroglycerin (Nitrostat) 0.4 mg SL UD PRN PRN Reason: Chest Pain Stop: 06/19/18 03:15 Nystatin (Mycostatin) 5 ml PO QID [facility] Stop: 06/05/18 12:59 Last Admin: 05/31/18 20:12 Dose: 5 ml Ondansetron HCl (Zofran) 4 mg IV Q6H PRN PRN Reason: Nausea Stop: 06/19/18 03:15 Last Admin: 05/29/18 04:23 Dose: 4 mg Polyethylene Glycol (Miralax Powder Packet) 17 gm PO DAILY [facility] Stop: 06/28/18 13:59 Last Admin: 05/31/18 08:24 Dose: 17 gm Warfarin Sodium (Coumadin) 2.5 mg PO DAILY@1600 [facility] Stop: 06/26/18 15:59 Last Admin: 05/29/18 16:44 Dose: 2.5 mg _ (1) DVT of lower extremity (deep venous thrombosis) Affected thrombotic vein of extremity: femoral Chronicity: acute Laterality : left Qualified Code(s): I82.412 - Acute embolism and thrombosis of left femoral vein
[2018-06-01 07:44] LABS: INR 1.4 (0.9-1.1); Prothrombin Time 13.6 Seconds (9.0-12.0)
[2018-06-01] MEDS: POLYETHYLENE (MIRALAX) 17 GM PACK PO SCH (08:40)
[2018-06-01] MEDS: MULTIVITAMIN TAB PO SCH (08:40)
[2018-06-01] MEDS: NYSTATIN SUSP 500,000 U/5 ML UDC PO SCH ×4 (08:40→21:43)
[2018-06-01] MEDS: ENOXAPARIN 80 MG/0.8 ML SYR SQ SCH ×2 (11:26→21:43)
[2018-06-01 11:38] LABS: Hematocrit (blood only) 32.9 % (37-47); Hemoglobin 9.9 g/dL (12.0-16.0); Mean Corpuscular Hgb Conc 30.1 g/dL (32-36); Mean Corpuscular Volume 72.6 fL (80-100); Platelet Count 201 K/uL (130-400); RDW Coefficient of Variation 15.3 % (11.5-14.5); RDW Standard Deviation 39.9 fL (36.4-46.3); Red Blood Count 4.53 M/uL (4.2-5.4); White Blood Count 7.06 K/uL (4.8-10.8)
[2018-06-01 11:46] LABS: Creatinine Clr Calc Pharmacy 87.2 ml/min; Est GFR (African American) 104.1; Est GFR (Non-African American) 89.8
[2018-06-01] MEDS: ACETAMINOPHEN 325 MG TAB PO PRN (13:52)
[2018-06-01] MEDS: WARFARIN SOD 2.5 MG TAB PO SCH (16:36)
--- NOTE | 2018-06-01 17:57 | Hospitalist Progress Note ---
Date of Service June 01, 2018 Assessment & Plan (1) DVT of lower extremity (deep venous thrombosis): Extensive acute left lower extremity deep venous thrombus. INR subtherapeutic so restarted her warfarin at reduced 2.5mg daily dose. Cover with Lovenox 1mg/kg until INR>2. No swelling of leg or pain at this time. No bleeding issues. (2) Thrush, oral: Nystatin started this admission. Persistent thrush on exam. Good oral care per nursing staff. Will need to continue for ten day course. (3) Hypernatremia: serum sodium 157 on admission 2/2 lack of free water intake/access at home ; Hypernatremia has resolved. Cont assistance with meals. (4) Dementia: Mental status is at baseline. Awaiting placement. (5) CKD (chronic kidney disease), stage III: She is at her baseline Dispo-to long term, awaiting insurance to go through [facility]. [facility] Subjective ROS cannot be obtained 2/2 dementia Physical Exam 2 Vital Signs (Past 24 Hours): Last Vital Signs Temp 36.3 C L 06/01/18 15:53 Pulse 74 06/01/18 15:53 Resp 20 06/01/18 15:53 BP 125/76 06/01/18 15:53 Pulse Ox 100 06/01/18 15:53 CONSTITUTIONAL: WNWD, vitals as above, laying with her eyes closed, only once opened her eyes and looked at me. Otherwise, she lies in bed with her eyes closed and only nods on occasion to questioning. EYES: could not evaluate as patient sleeping. ENT: tongue covered with whitish substance RESPIRATORY: clear to auscultation bilaterally, no crackles, rales or wheezes, normal respiratory effort CARDIOVASCULAR: regular rate and rhythm, S1 and 2 heard without murmurs, gallops or rubs, no peripheral edema GASTROINTESTINAL: normal bowel sounds, soft, nontender, nondistended MUSCULOSKELETAL: appears generally weak however, exam is limited as patient is demented at baseline, head is normocephalic and atraumatic SKIN: warm and dry NEUROLOGIC: abnormal cognition limiting exam. PSYCHIATRIC: alert and oriented to self only. No delirium noted. Results & Data Laboratory Results Short CBC 06/01/18 Range/Units 07:04 WBC 7.06 (4.8-10.8) K/uL Hgb 9.9 L (12.0-16.0) g/dL Hct 32.9 L (37-47) % Plt Count 201 (130-400) K/uL [facility] 06/01/18 07:04 Creatinine 0.55 L INR 1.4 Medications Administered Current Inpatient Medications Acetaminophen (Tylenol) 650 mg PO Q4H PRN PRN Reason: Pain or Fever Stop: 06/19/18 03:15 Last Admin: 06/01/18 13:52 Dose: 650 mg Enoxaparin Sodium (Lovenox) 80 mg SQ Q12 [facility] Stop: 07/01/18 10:59 Last Admin: 06/01/18 21:43 Dose: 80 mg Heparin Sodium (Beef Lung) (Heparin Sod 10 Unit/Ml Flush) 5 ml FLUSH PRN PRN PRN Reason: PROTOCOL Stop: 06/26/18 21:30 Last Admin: 06/01/18 08:57 Dose: 5 ml Multivitamins (Multivitamin) 1 tab PO DAILY [facility] Stop: 06/19/18 08:59 Last Admin: 06/01/18 08:40 Dose: 1 tab Nitroglycerin (Nitrostat) 0.4 mg SL UD PRN PRN Reason: Chest Pain Stop: 06/19/18 03:15 Nystatin (Mycostatin) 5 ml PO QID [facility] Stop: 06/05/18 12:59 Last Admin: 06/01/18 21:43 Dose: 5 ml Ondansetron HCl (Zofran) 4 mg IV Q6H PRN PRN Reason: Nausea Stop: 06/19/18 03:15 Last Admin: 05/29/18 04:23 Dose: 4 mg Polyethylene Glycol (Miralax Powder Packet) 17 gm PO DAILY [facility] Stop: 06/28/18 13:59 Last Admin: 06/01/18 08:40 Dose: 17 gm Warfarin Sodium (Coumadin) 2.5 mg PO DAILY@1600 [facility] Stop: 06/26/18 15:59 Last Admin: 06/01/18 16:36 Dose: 2.5 mg _ (1) DVT of lower extremity (deep venous thrombosis) Affected thrombotic vein of extremity: femoral Chronicity: acute Laterality : left Qualified Code(s): I82.412 - Acute embolism and thrombosis of left femoral vein
[2018-06-02 06:51] LABS: INR 1.3 (0.9-1.1); Prothrombin Time 12.7 Seconds (9.0-12.0)
[2018-06-02] MEDS: POLYETHYLENE (MIRALAX) 17 GM PACK PO SCH (08:15)
[2018-06-02] MEDS: ENOXAPARIN 80 MG/0.8 ML SYR SQ SCH ×2 (09:01→21:42)
[2018-06-02] MEDS: NYSTATIN SUSP 500,000 U/5 ML UDC PO SCH ×4 (09:01→21:41)
[2018-06-02] MEDS: MULTIVITAMIN TAB PO SCH (09:01)
[2018-06-02] MEDS: ACETAMINOPHEN 325 MG TAB PO PRN (12:02)
--- NOTE | 2018-06-02 17:08 | Hospitalist Progress Note ---
Date of Service June 02, 2018 Assessment & Plan (1) DVT of lower extremity (deep venous thrombosis): Extensive acute left lower extremity deep venous thrombus. INR subtherapeutic so restarted her warfarin at reduced 2.5mg daily dose. Cover with Lovenox 1mg/kg until INR>2. No swelling of leg or pain at this time. No bleeding issues. (2) Thrush, oral: Nystatin started this admission. Persistent thrush on exam. Good oral care per nursing staff. Will need to continue for ten day course. (3) Hypernatremia: serum sodium 157 on admission 2/2 lack of free water intake/access at home ; Hypernatremia has resolved. Cont assistance with meals. (4) Dementia: Mental status is at baseline. Awaiting placement. (5) CKD (chronic kidney disease), stage III: She is at her baseline [facility] to [facility] through [facility]. DNR Bibi Adari DO [facility] Hospitalist Subjective ROS difficult to obtain 2/2 dementia, however, she is more awake today. Reports some pain in her legs and feet but cannot elaborate further. Physical Exam 2 Vital Signs (Past 24 Hours): Last Vital Signs Temp 37.2 C 06/02/18 15:45 Pulse 74 06/02/18 15:45 Resp 20 06/02/18 15:45 BP 123/69 06/02/18 15:45 Pulse Ox 97 06/02/18 15:45 CONSTITUTIONAL: WNWD, vitals as above, NAD EYES: normal sclerae or conjunctivae ENT: tongue covered with whitish substance RESPIRATORY: clear to auscultation bilaterally, no crackles, rales or wheezes, normal respiratory effort CARDIOVASCULAR: regular rate and rhythm, S1 and 2 heard without murmurs, gallops or rubs, no peripheral edema GASTROINTESTINAL: normal bowel sounds, soft, nontender, nondistended MUSCULOSKELETAL: appears generally weak however, exam is limited as patient is demented at baseline, head is normocephalic and atraumatic SKIN: warm and dry NEUROLOGIC: abnormal cognition limiting exam. PSYCHIATRIC: alert and oriented to self only. No delirium noted. Results & Data Medications Administered Current Inpatient Medications Acetaminophen (Tylenol) 650 mg PO Q4H PRN PRN Reason: Pain or Fever Stop: 06/19/18 03:15 Last Admin: 06/02/18 12:02 Dose: 650 mg Enoxaparin Sodium (Lovenox) 80 mg SQ Q12 [facility] Stop: 07/01/18 10:59 Last Admin: 06/02/18 09:01 Dose: 80 mg Heparin Sodium (Beef Lung) (Heparin Sod 10 Unit/Ml Flush) 5 ml FLUSH PRN PRN PRN Reason: PROTOCOL Stop: 06/26/18 21:30 Last Admin: 06/01/18 08:57 Dose: 5 ml Multivitamins (Multivitamin) 1 tab PO DAILY [facility] Stop: 06/19/18 08:59 Last Admin: 06/02/18 09:01 Dose: 1 tab Nitroglycerin (Nitrostat) 0.4 mg SL UD PRN PRN Reason: Chest Pain Stop: 06/19/18 03:15 Nystatin (Mycostatin) 5 ml PO QID [facility] Stop: 06/05/18 12:59 Last Admin: 06/02/18 17:52 Dose: 5 ml Ondansetron HCl (Zofran) 4 mg IV Q6H PRN PRN Reason: Nausea Stop: 06/19/18 03:15 Last Admin: 05/29/18 04:23 Dose: 4 mg Polyethylene Glycol (Miralax Powder Packet) 17 gm PO DAILY [facility] Stop: 06/28/18 13:59 Last Admin: 06/02/18 08:15 Dose: 17 gm Warfarin Sodium (Coumadin) 2.5 mg PO DAILY@1600 [facility] Stop: 06/26/18 15:59 Last Admin: 06/02/18 17:52 Dose: 2.5 mg _ (1) DVT of lower extremity (deep venous thrombosis) Affected thrombotic vein of extremity: femoral Chronicity: acute Laterality : left Qualified Code(s): I82.412 - Acute embolism and thrombosis of left femoral vein
[2018-06-02] MEDS: WARFARIN SOD 2.5 MG TAB PO SCH (17:52)
[2018-06-03] MEDS: ENOXAPARIN 80 MG/0.8 ML SYR SQ SCH ×2 (08:06→20:12)
[2018-06-03] MEDS: NYSTATIN SUSP 500,000 U/5 ML UDC PO SCH ×4 (08:07→20:12)
[2018-06-03] MEDS: POLYETHYLENE (MIRALAX) 17 GM PACK PO SCH (08:07)
[2018-06-03] MEDS: MULTIVITAMIN TAB PO SCH (08:07)
[2018-06-03 09:42] LABS: Hematocrit (blood only) 36.4 % (37-47); Hemoglobin 11.1 g/dL (12.0-16.0); Mean Corpuscular Hgb Conc 30.5 g/dL (32-36); Mean Corpuscular Volume 72.1 fL (80-100); Platelet Count 276 K/uL (130-400); RDW Coefficient of Variation 15.8 % (11.5-14.5); RDW Standard Deviation 40.4 fL (36.4-46.3); Red Blood Count 5.05 M/uL (4.2-5.4); White Blood Count 5.84 K/uL (4.8-10.8)
[2018-06-03 09:53] LABS: INR 1.2 (0.9-1.1); Prothrombin Time 12.2 Seconds (9.0-12.0)
[2018-06-03 10:13] LABS: BUN Creatinine Ratio 10.9 (10-20); Calcium 8.5 mg/dl (8.5-10.1); Creatinine Clr Calc Pharmacy 88.8 ml/min; Est GFR (African American) 104.8; Est GFR (Non-African American) 90.4; Magnesium 1.9 mg/dl (1.8-2.4); Potassium 3.7 mmol/L (3.5-5.1)
--- NOTE | 2018-06-03 12:57 | Hospitalist Progress Note ---
Date of Service June 03, 2018 Assessment & Plan (1) DVT of lower extremity (deep venous thrombosis): Extensive acute left lower extremity deep venous thrombus. INR subtherapeutic so restarted her warfarin at reduced 2.5mg daily dose. Cover with Lovenox 1mg/kg until INR>2. No swelling of leg or pain at this time. No bleeding issues. (2) Thrush, oral: Nystatin started this admission. Persistent thrush on exam. Good oral care per nursing staff. Will need to continue for ten day course. (3) Hypernatremia: serum sodium 157 on admission 2/2 lack of free water intake/access at home ; Hypernatremia has resolved. (4) Dementia: Mental status is at baseline. Awaiting placement. (5) CKD (chronic kidney disease), stage III: She is at her baseline [facility], [facility] to [facility] through [facility]. DNR Subjective Resumed care from Dr. Adair-findings are similar to hers, ROS difficult to obtain 2/2 dementia. Pleasant and cooperative. Physical Exam 2 Vital Signs (Past 24 Hours): Last Vital Signs Temp 37.2 C 06/03/18 07:20 Pulse 73 06/03/18 07:20 Resp 18 06/03/18 07:20 BP 131/81 06/03/18 07:20 Pulse Ox 99 06/03/18 07:20 ROS-offers no reliable history Physical Exam Gen-awake, pleasant and cooperative, NAD, Afebrile, demented Head-NCAT, EOMI, PERRLA, Anicteric Sclera, No Posterior Pharyngeal Erythema Neck-Supple, No JVD, No Thyromegaly, No Masses, No LAD, No Bruits Lungs-Clear to Auscultation Bilaterally, No Rales, No Rhonchi, No Wheezing, No Crepitus Chest-No S4, +S1, +S2, No S3, No Murmurs, No Rubs, No Gallops, No Ectopy Abdomen-Soft, Bowel Sounds Present, Non Tender, Non Distended, No Hepatomegaly, No Splenomegaly, No Palpable Masses, No Rebound, No Rigidity, No Guarding Musculoskeletal-Full Range of Motion Bilaterally, No CVAT Extremities-No Cyanosis, No Clubbing, No Edema Nuero-Cranial Nerves II-XII grossly intact, Motor WNL, DTRs WNL, Strength WNL, No Focal Psych-demented Results & Data Laboratory Results Current Diagnoses Candidal stomatitis (05/20/18) Hyperosmolality and hypernatremia (05/20/18) Hypokalemia (05/20/18) Unspecified dementia without behavioral disturbance (05/20/18) Acute embolism and thrombosis of left femoral vein (05/20/18) Acute kidney failure, unspecified (05/20/18) Chronic kidney disease, stage 3 (moderate) (05/20/18) Allergies Penicillins Allergy (Unknown, Verified 05/19/18 22:44) Unknown Height/Weight/Isolation Height 5 ft 4 in Weight 81.7 kg Chemistry 06/03/18 09:22 Sodium 137 Potassium 3.7 Chloride 104 Carbon Dioxide 30 Anion Gap 3.0 BUN 6 L Creatinine 0.54 L Glucose 101 H _ (1) DVT of lower extremity (deep venous thrombosis) Affected thrombotic vein of extremity: femoral Chronicity: acute Laterality : left Qualified Code(s): I82.412 - Acute embolism and thrombosis of left femoral vein
[2018-06-03] MEDS: WARFARIN SOD 2.5 MG TAB PO SCH (17:51)
[2018-06-03] MEDS: ACETAMINOPHEN 325 MG TAB PO PRN (20:10)
[2018-06-04 07:23] LABS: Hematocrit (blood only) 33.2 % (37-47); Hemoglobin 10.1 g/dL (12.0-16.0); Mean Corpuscular Hgb Conc 30.4 g/dL (32-36); Mean Corpuscular Volume 71.9 fL (80-100); Platelet Count 236 K/uL (130-400); RDW Coefficient of Variation 15.5 % (11.5-14.5); RDW Standard Deviation 39.9 fL (36.4-46.3); Red Blood Count 4.62 M/uL (4.2-5.4)
[2018-06-04 07:30] LABS: INR 1.3 (0.9-1.1); Prothrombin Time 12.7 Seconds (9.0-12.0)
[2018-06-04] MEDS: MULTIVITAMIN TAB PO SCH (07:30)
[2018-06-04] MEDS: ENOXAPARIN 80 MG/0.8 ML SYR SQ SCH ×2 (07:30→20:56)
[2018-06-04] MEDS: POLYETHYLENE (MIRALAX) 17 GM PACK PO SCH (07:31)
[2018-06-04] MEDS: NYSTATIN SUSP 500,000 U/5 ML UDC PO SCH ×4 (07:32→20:57)
[2018-06-04 07:50] LABS: BUN Creatinine Ratio 10.5 (10-20); Calcium 8.3 mg/dl (8.5-10.1); Est GFR (African American) 112.1; Est GFR (Non-African American) 96.7; Potassium 3.8 mmol/L (3.5-5.1)
--- NOTE | 2018-06-04 12:12 | Hospitalist Progress Note ---
Date of Service June 04, 2018 Assessment & Plan (1) DVT of lower extremity (deep venous thrombosis): Extensive acute left lower extremity deep venous thrombus. INR subtherapeutic so restarted her warfarin at reduced 2.5mg daily dose. Cover with Lovenox 1mg/kg until INR>2. INR 1.3 today. No swelling of leg or pain at this time. No bleeding issues. (2) Thrush, oral: Nystatin started this admission. Persistent thrush on exam. Good oral care per nursing staff. Will need to continue for ten day course. (3) Hypernatremia: Hypernatremia has resolved. (4) Dementia: Mental status is at baseline. Awaiting placement. (5) CKD (chronic kidney disease), stage III: She is at her baseline Dispo-to longterm, awaiting insurance to go through first. DNR Subjective Pleasant and cooperative. Awaiting [place] Medicaid and placement ROS-No Headache, No Visual Changes, No Fever, No Chills, No Neck Pain or Stiffness, No Chest Pain, No Palpitations, No SOB, No CHEN, No Cough, No Sputum, No Wheezing, No Abdominal Pain, No Diarrhea, No Hematemesis, No Hemoptysis, No Unexpected Weight Loss, No Flank pain, No Melena, No Hematochezia, No Frequency , No Urgency, No Burning, No Hematuria, No Rashes, No Diaphoresis. Appetite is Normal Physical Exam Gen-AAO x 3, NAD, Afebrile Head-NCAT, EOMI, PERRLA, Anicteric Sclera, No Posterior Pharyngeal Erythema Neck-Supple, No JVD, No Thyromegaly, No Masses, No LAD, No Bruits Lungs-Clear to Auscultation Bilaterally, No Rales, No Rhonchi, No Wheezing, No Crepitus Chest-No S4, +S1, +S2, No S3, No Murmurs, No Rubs, No Gallops, No Ectopy Abdomen-Soft, Bowel Sounds Present, Non Tender, Non Distended, No Hepatomegaly, No Splenomegaly, No Palpable Masses, No Rebound, No Rigidity, No Guarding Musculoskeletal-Full Range of Motion Bilaterally, No CVAT Extremities-No Cyanosis, No Clubbing, No Edema Nuero-Cranial Nerves II-XII grossly intact, Motor WNL, DTRs WNL, Strength WNL, No Focal Psych-Normal Mood, Demented Physical Exam 2 Vital Signs (Past 24 Hours): Last Vital Signs Temp 36.6 C 06/04/18 07:22 Pulse 64 06/04/18 07:22 Resp 18 06/04/18 07:22 BP 124/80 06/04/18 07:22 Pulse Ox 93 06/04/18 07:22 _ (1) DVT of lower extremity (deep venous thrombosis) Affected thrombotic vein of extremity: femoral Chronicity: acute Laterality : left Qualified Code(s): I82.412 - Acute embolism and thrombosis of left femoral vein
[2018-06-04] MEDS: WARFARIN SOD 2.5 MG TAB PO SCH (16:06)
[2018-06-05] MEDS: ENOXAPARIN 80 MG/0.8 ML SYR SQ SCH ×2 (08:02→21:45)
[2018-06-05] MEDS: MULTIVITAMIN TAB PO SCH (08:03)
[2018-06-05] MEDS: NYSTATIN SUSP 500,000 U/5 ML UDC PO SCH (08:03)
[2018-06-05] MEDS: POLYETHYLENE (MIRALAX) 17 GM PACK PO SCH (08:06)
[2018-06-05 11:04] LABS: INR 1.3 (0.9-1.1)
--- NOTE | 2018-06-05 11:51 | Hospitalist Progress Note ---
Date of Service June 05, 2018 Assessment & Plan (1) DVT of lower extremity (deep venous thrombosis): Extensive acute left lower extremity deep venous thrombus. INR subtherapeutic so restarted her warfarin at reduced 2.5mg daily dose. Cover with Lovenox 1mg/kg until INR>2. INR 1.3 today. No swelling of leg or pain at this time. No bleeding issues. (2) Thrush, oral: Nystatin started this admission. Persistent thrush on exam. Good oral care per nursing staff. Will need to continue for ten day course. (3) Hypernatremia: Hypernatremia has resolved. (4) Dementia: Mental status is at baseline. Awaiting placement. (5) CKD (chronic kidney disease), stage III: She is at her baseline Dispo-to [facility], awaiting insurance to go through [facility]. DNR Subjective Pleasant and cooperative. Awaiting [place] Medicaid and placement. No new issues today ROS-No Headache, No Visual Changes, No Fever, No Chills, No Neck Pain or Stiffness, No Chest Pain, No Palpitations, No SOB, No CHEN, No Cough, No Sputum, No Wheezing, No Abdominal Pain, No Diarrhea, No Hematemesis, No Hemoptysis, No Unexpected Weight Loss, No Flank pain, No Melena, No Hematochezia, No Frequency , No Urgency, No Burning, No Hematuria, No Rashes, No Diaphoresis. Appetite is Normal Physical Exam Gen-AAO x 3, NAD, Afebrile Head-NCAT, EOMI, PERRLA, Anicteric Sclera, No Posterior Pharyngeal Erythema Neck-Supple, No JVD, No Thyromegaly, No Masses, No LAD, No Bruits Lungs-Clear to Auscultation Bilaterally, No Rales, No Rhonchi, No Wheezing, No Crepitus Chest-No S4, +S1, +S2, No S3, No Murmurs, No Rubs, No Gallops, No Ectopy Abdomen-Soft, Bowel Sounds Present, Non Tender, Non Distended, No Hepatomegaly, No Splenomegaly, No Palpable Masses, No Rebound, No Rigidity, No Guarding Musculoskeletal-Full Range of Motion Bilaterally, No CVAT Extremities-No Cyanosis, No Clubbing, No Edema Nuero-Cranial Nerves II-XII grossly intact, Motor WNL, DTRs WNL, Strength WNL, No Focal Psych-Normal Mood, Demented Physical Exam 2 Vital Signs (Past 24 Hours): Last Vital Signs Temp 36.5 C 06/05/18 07:29 Pulse 69 06/05/18 07:29 Resp 20 06/05/18 07:29 BP 141/80 H 06/05/18 07:29 Pulse Ox 100 06/05/18 07:29 Results & Data Laboratory Results Current Diagnoses Candidal stomatitis (05/20/18) Hyperosmolality and hypernatremia (05/20/18) Hypokalemia (05/20/18) Unspecified dementia without behavioral disturbance (05/20/18) Acute embolism and thrombosis of left femoral vein (05/20/18) Acute kidney failure, unspecified (05/20/18) Chronic kidney disease, stage 3 (moderate) (05/20/18) Allergies Penicillins Allergy (Unknown, Verified 05/19/18 22:44) Unknown Height/Weight/Isolation Height 5 ft 4 in Weight 81.7 kg Chemistry 06/04/18 06:59 Sodium 139 Potassium 3.8 Chloride 106 Carbon Dioxide 28 Anion Gap 5.0 BUN 5 L Creatinine 0.44 L Glucose 82 _ (1) DVT of lower extremity (deep venous thrombosis) Affected thrombotic vein of extremity: femoral Chronicity: acute Laterality : left Qualified Code(s): I82.412 - Acute embolism and thrombosis of left femoral vein
[2018-06-05] MEDS: WARFARIN SOD 2.5 MG TAB PO SCH (16:47)
[2018-06-05] MEDS: ACETAMINOPHEN 325 MG TAB PO PRN (17:00)
[2018-06-06] MEDS: ENOXAPARIN 80 MG/0.8 ML SYR SQ SCH ×2 (09:55→21:27)
[2018-06-06] MEDS: MULTIVITAMIN TAB PO SCH (09:56)
[2018-06-06] MEDS: POLYETHYLENE (MIRALAX) 17 GM PACK PO SCH (09:57)
[2018-06-06] MEDS ORDERED: ONDANSETRON 4 MG TAB PO PRN (10:00)
[2018-06-06] MEDS: ACETAMINOPHEN 325 MG TAB PO PRN (10:01)
--- NOTE | 2018-06-06 10:01 | Hospitalist Progress Note ---
Date of Service June 06, 2018 Assessment & Plan (1) DVT of lower extremity (deep venous thrombosis): Left lower extremity deep venous thrombus. INR subtherapeutic so restarted her warfarin at reduced 2.5mg daily dose. Cover with Lovenox 1mg/kg until INR>2. Increase Warfarin (2) Thrush, oral: Nystatin started this admission. Persistent thrush on exam. Good oral care per nursing staff. Nystatin course completed (3) Hypernatremia: Hypernatremia has resolved. (4) Dementia: Mental status is at baseline. Awaiting placement. (5) CKD (chronic kidney disease), stage III: She is at her baseline Dispo-to [facility], awaiting insurance to go through first. DNR Subjective Pleasant and cooperative. Awaiting [place] Medicaid and placement. No new issues today ROS-No Headache, No Visual Changes, No Fever, No Chills, No Neck Pain or Stiffness, No Chest Pain, No Palpitations, No SOB, No CHEN, No Cough, No Sputum, No Wheezing, No Abdominal Pain, No Diarrhea, No Hematemesis, No Hemoptysis, No Unexpected Weight Loss, No Flank pain, No Melena, No Hematochezia, No Frequency , No Urgency, No Burning, No Hematuria, No Rashes, No Diaphoresis. Appetite is Normal Physical Exam Gen-AAO x 3, NAD, Afebrile Head-NCAT, EOMI, PERRLA, Anicteric Sclera, No Posterior Pharyngeal Erythema Neck-Supple, No JVD, No Thyromegaly, No Masses, No LAD, No Bruits Lungs-Clear to Auscultation Bilaterally, No Rales, No Rhonchi, No Wheezing, No Crepitus Chest-No S4, +S1, +S2, No S3, No Murmurs, No Rubs, No Gallops, No Ectopy Abdomen-Soft, Bowel Sounds Present, Non Tender, Non Distended, No Hepatomegaly, No Splenomegaly, No Palpable Masses, No Rebound, No Rigidity, No Guarding Musculoskeletal-Full Range of Motion Bilaterally, No CVAT Extremities-No Cyanosis, No Clubbing, No Edema Nuero-Cranial Nerves II-XII grossly intact, Motor WNL, DTRs WNL, Strength WNL, No Focal Psych-Normal Mood, Demented Physical Exam 2 Vital Signs (Past 24 Hours): Last Vital Signs Temp 36.8 C 06/06/18 08:04 Pulse 76 06/06/18 08:04 Resp 18 06/06/18 08:04 BP 127/77 06/06/18 08:04 Pulse Ox 96 06/06/18 08:04 Results & Data Laboratory Results Current Diagnoses Candidal stomatitis (05/20/18) Hyperosmolality and hypernatremia (05/20/18) Hypokalemia (05/20/18) Unspecified dementia without behavioral disturbance (05/20/18) Acute embolism and thrombosis of left femoral vein (05/20/18) Acute kidney failure, unspecified (05/20/18) Chronic kidney disease, stage 3 (moderate) (05/20/18) Allergies Penicillins Allergy (Unknown, Verified 05/19/18 22:44) Unknown Height/Weight/Isolation Height 5 ft 4 in Weight 81.7 kg _ (1) DVT of lower extremity (deep venous thrombosis) Affected thrombotic vein of extremity: femoral Chronicity: acute Laterality : left Qualified Code(s): I82.412 - Acute embolism and thrombosis of left femoral vein
[2018-06-06] MEDS: WARFARIN SOD 4 MG TAB PO SCH (15:47)
[2018-06-07 07:07] LABS: Hematocrit (blood only) 33.8 % (37-47); Hemoglobin 10.3 g/dL (12.0-16.0); Mean Corpuscular Hgb Conc 30.5 g/dL (32-36); Mean Corpuscular Volume 72.2 fL (80-100); Platelet Count 251 K/uL (130-400); RDW Coefficient of Variation 16.3 % (11.5-14.5); RDW Standard Deviation 41.5 fL (36.4-46.3); Red Blood Count 4.68 M/uL (4.2-5.4); White Blood Count 6.33 K/uL (4.8-10.8)
[2018-06-07 07:14] LABS: Prothrombin Time 19.3 Seconds (9.0-12.0)
[2018-06-07 07:37] LABS: BUN Creatinine Ratio 6.6 (10-20); Calcium 8.7 mg/dl (8.5-10.1); Creatinine Clr Calc Pharmacy 64.4 ml/min; Est GFR (African American) 91.4; Est GFR (Non-African American) 78.9; Potassium 3.6 mmol/L (3.5-5.1)
[2018-06-07] MEDS: MULTIVITAMIN TAB PO SCH (08:37)
[2018-06-07] MEDS: POLYETHYLENE (MIRALAX) 17 GM PACK PO SCH (08:37)
[2018-06-07] MEDS: ENOXAPARIN 80 MG/0.8 ML SYR SQ SCH ×2 (08:37→20:15)
--- NOTE | 2018-06-07 10:57 | Hospitalist Progress Note ---
Date of Service June 07, 2018 Assessment & Plan (1) DVT of lower extremity (deep venous thrombosis): Left lower extremity deep venous thrombus. INR subtherapeutic so restarted her warfarin at reduced 2.5mg daily dose. Cover with Lovenox 1mg/kg until INR>2. Increase Warfarin (2) Thrush, oral: Nystatin started this admission. Persistent thrush on exam. Good oral care per nursing staff. Nystatin course completed (3) Hypernatremia: Hypernatremia has resolved. (4) Dementia: Mental status is at baseline. Awaiting placement. (5) CKD (chronic kidney disease), stage III: She is at her baseline [facility], awaiting insurance to go through first. DNR Subjective Pleasant and cooperative. Awaiting [place] Medicaid and placement. No new issues today, per RN possible placement tomorrow 06/08 ROS-No Headache, No Visual Changes, No Fever, No Chills, No Neck Pain or Stiffness, No Chest Pain, No Palpitations, No SOB, No CHEN, No Cough, No Sputum, No Wheezing, No Abdominal Pain, No Diarrhea, No Hematemesis, No Hemoptysis, No Unexpected Weight Loss, No Flank pain, No Melena, No Hematochezia, No Frequency , No Urgency, No Burning, No Hematuria, No Rashes, No Diaphoresis. Appetite is Normal Physical Exam Gen-AAO x 3, NAD, Afebrile Head-NCAT, EOMI, PERRLA, Anicteric Sclera, No Posterior Pharyngeal Erythema Neck-Supple, No JVD, No Thyromegaly, No Masses, No LAD, No Bruits Lungs-Clear to Auscultation Bilaterally, No Rales, No Rhonchi, No Wheezing, No Crepitus Chest-No S4, +S1, +S2, No S3, No Murmurs, No Rubs, No Gallops, No Ectopy Abdomen-Soft, Bowel Sounds Present, Non Tender, Non Distended, No Hepatomegaly, No Splenomegaly, No Palpable Masses, No Rebound, No Rigidity, No Guarding Musculoskeletal-Full Range of Motion Bilaterally, No CVAT Extremities-No Cyanosis, No Clubbing, No Edema Nuero-Cranial Nerves II-XII grossly intact, Motor WNL, DTRs WNL, Strength WNL, No Focal Psych-Normal Mood, Demented Physical Exam 2 Vital Signs (Past 24 Hours): Last Vital Signs Temp 36.6 C 06/07/18 07:24 Pulse 71 06/07/18 07:24 Resp 18 06/07/18 07:24 BP 152/76 H 06/07/18 07:24 Pulse Ox 98 06/07/18 07:24 Results & Data Laboratory Results Current Diagnoses Candidal stomatitis (05/20/18) Hyperosmolality and hypernatremia (05/20/18) Hypokalemia (05/20/18) Unspecified dementia without behavioral disturbance (05/20/18) Acute embolism and thrombosis of left femoral vein (05/20/18) Acute kidney failure, unspecified (05/20/18) Chronic kidney disease, stage 3 (moderate) (05/20/18) Allergies Penicillins Allergy (Unknown, Verified 05/19/18 22:44) Unknown Height/Weight/Isolation Height 5 ft 4 in Weight 78.6 kg Chemistry 06/07/18 06:40 Sodium 139 Potassium 3.6 Chloride 104 Carbon Dioxide 27 Anion Gap 8.0 BUN 5 L Creatinine 0.73 Glucose 89 _ (1) DVT of lower extremity (deep venous thrombosis) Affected thrombotic vein of extremity: femoral Chronicity: acute Laterality : left Qualified Code(s): I82.412 - Acute embolism and thrombosis of left femoral vein
[2018-06-07] MEDS: WARFARIN SOD 4 MG TAB PO SCH (16:05)
[2018-06-08 07:35] LABS: INR 2.3 (0.9-1.1); Prothrombin Time 22.5 Seconds (9.0-12.0)
[2018-06-08] MEDS: ENOXAPARIN 80 MG/0.8 ML SYR SQ SCH (07:52)
[2018-06-08] MEDS: POLYETHYLENE (MIRALAX) 17 GM PACK PO SCH (07:52)
[2018-06-08] MEDS: MULTIVITAMIN TAB PO SCH (07:52)
--- NOTE | 2018-06-08 12:38 | Hospitalist Progress Note ---
Date of Service June 08, 2018 Assessment & Plan (1) DVT of lower extremity (deep venous thrombosis): Left lower extremity deep venous thrombus. INR subtherapeutic so restarted her warfarin at reduced 2.5mg daily dose. Cover with Lovenox 1mg/kg until INR>2. Increase Warfarin (2) Thrush, oral: Nystatin started this admission. Persistent thrush on exam. Good oral care per nursing staff. Nystatin course completed (3) Hypernatremia: Hypernatremia has resolved. (4) Dementia: Mental status is at baseline. Awaiting placement. (5) CKD (chronic kidney disease), stage III: She is at her baseline Dispo-to retirement, awaiting insurance to go through first. DNR Subjective Pleasant and cooperative. Awaiting [place] Medicaid and placement. No new issues today, per RN possible placement 06/08 ROS-No Headache, No Visual Changes, No Fever, No Chills, No Neck Pain or Stiffness, No Chest Pain, No Palpitations, No SOB, No CHEN, No Cough, No Sputum, No Wheezing, No Abdominal Pain, No Diarrhea, No Hematemesis, No Hemoptysis, No Unexpected Weight Loss, No Flank pain, No Melena, No Hematochezia, No Frequency , No Urgency, No Burning, No Hematuria, No Rashes, No Diaphoresis. Appetite is Normal Physical Exam Gen-AAO x 3, NAD, Afebrile, eating breakfast, comfortable Head-NCAT, EOMI, PERRLA, Anicteric Sclera, No Posterior Pharyngeal Erythema Neck-Supple, No JVD, No Thyromegaly, No Masses, No LAD, No Bruits Lungs-Clear to Auscultation Bilaterally, No Rales, No Rhonchi, No Wheezing, No Crepitus Chest-No S4, +S1, +S2, No S3, No Murmurs, No Rubs, No Gallops, No Ectopy Abdomen-Soft, Bowel Sounds Present, Non Tender, Non Distended, No Hepatomegaly, No Splenomegaly, No Palpable Masses, No Rebound, No Rigidity, No Guarding Musculoskeletal-Full Range of Motion Bilaterally, No CVAT Extremities-No Cyanosis, No Clubbing, No Edema Nuero-Cranial Nerves II-XII grossly intact, Motor WNL, DTRs WNL, Strength WNL, No Focal Psych-Normal Mood, Demented Physical Exam 2 Vital Signs (Past 24 Hours): Last Vital Signs Temp 36.7 C 06/08/18 07:20 Pulse 66 06/08/18 07:20 Resp 18 06/08/18 07:20 BP 126/71 06/08/18 07:20 Pulse Ox 99 06/08/18 07:20 _ (1) DVT of lower extremity (deep venous thrombosis) Affected thrombotic vein of extremity: femoral Chronicity: acute Laterality : left Qualified Code(s): I82.412 - Acute embolism and thrombosis of left femoral vein
--- NOTE | 2018-06-08 14:12 | Discharge Summary ---
Date of Service June 08, 2018 Principal Diagnosis Dementia DVT CKD Discharge Exam ROS-No Headache, No Visual Changes, No Fever, No Chills, No Neck Pain or Stiffness, No Chest Pain, No Palpitations, No SOB, No CHEN, No Cough, No Sputum, No Wheezing, No Abdominal Pain, No Diarrhea, No Hematemesis, No Hemoptysis, No Unexpected Weight Loss, No Flank pain, No Melena, No Hematochezia, No Frequency , No Urgency, No Burning, No Hematuria, No Rashes, No Diaphoresis. Appetite is Normal Physical Exam Gen-AAO x 2, NAD, Afebrile, Demented Head-NCAT, EOMI, PERRLA, Anicteric Sclera, No Posterior Pharyngeal Erythema Neck-Supple, No JVD, No Thyromegaly, No Masses, No LAD, No Bruits Lungs-Clear to Auscultation Bilaterally, No Rales, No Rhonchi, No Wheezing, No Crepitus Chest-No S4, +S1, +S2, No S3, No Murmurs, No Rubs, No Gallops, No Ectopy Abdomen-Soft, Bowel Sounds Present, Non Tender, Non Distended, No Hepatomegaly, No Splenomegaly, No Palpable Masses, No Rebound, No Rigidity, No Guarding Musculoskeletal-Full Range of Motion Bilaterally, No CVAT Extremities-No Cyanosis, No Clubbing, No Edema Nuero-Cranial Nerves II-XII grossly intact, Motor WNL, DTRs WNL, Strength WNL, No Focal Psych-Normal Mood Discharge Data Allergies Allergy/AdvReac Type Severity Reaction Status Date / Time Penicillins Allergy Unknown Unknown Verified 05/19/18 22:44 Consultations 05/19/18 22:51 ED Decision to Admit Stat 05/20/18 03:16 Consult Case Management - Discharge Planning Routine 05/20/18 08:00 Consult Nephrology Routine Ordered Studies 05/19/18 20:32 CT cervical spine wo con Stat 05/19/18 20:33 CT head/brain wo con Stat 05/19/18 22:57 US venous doppler LE LT Urgent Current Diagnoses Candidal stomatitis (05/20/18) Hyperosmolality and hypernatremia (05/20/18) Hypokalemia (05/20/18) Unspecified dementia without behavioral disturbance (05/20/18) Acute embolism and thrombosis of left femoral vein (05/20/18) Acute kidney failure, unspecified (05/20/18) Chronic kidney disease, stage 3 (moderate) (05/20/18) Allergies Penicillins Allergy (Unknown, Verified 05/19/18 22:44) Unknown Height/Weight/Isolation Height 5 ft 4 in Weight 76.8 kg Chemistry 06/07/18 06:40 Sodium 139 Potassium 3.6 Chloride 104 Carbon Dioxide 27 Anion Gap 8.0 BUN 5 L Creatinine 0.73 Glucose 89 Hospital Course (1) DVT of lower extremity (deep venous thrombosis): Left lower extremity deep venous thrombus. INR subtherapeutic so restarted her warfarin at reduced 2.5mg daily dose. Cover with Lovenox 1mg/kg until INR>2. Increased Warfarin to 5 mg QD, Warfarin dosing as per INR (2) Thrush, oral: Nystatin course completed (3) Hypernatremia: Hypernatremia has resolved. (4) Dementia: Mental status is at baseline. DC to [facility] (5) CKD (chronic kidney disease), stage III: She is at her baseline Dispo-to [facility] skilled nursing today DNR Total Time Total Time Spent Total Time Spent (In Minutes): 45 mins Total Time Includes: Examination of the Patient, Discharge Planning, Medication Reconciliation and Communication With Other Providers Discharge Plan Discharge Items Patient Disposition: Trans Resident Long-Term Care Reason For Visit: FALL Discharge Diagnosis: CKD Dementia DVT Discharge Goals: Improve function Activity: Resume your previous activity Lifting: None Bathing: No limitations Exercise/Sports: None Weightbearing: Left weightbearing and Right weightbearing Non-emergency contact: Primary Care Provider Call non-emergency contact if: your symptoms worsen and your pain is worsening Diet: Regular Addtl Provider Instructions: Supportive Care Prescriptions: New warfarin 2 mg tablet 5 mg PO DAILY@1600 Qty: 90 RF: 0 Continue multivitamin Tablet 1 tab PO DAILY RF: 0 quetiapine [Seroquel] 25 mg Tablet PO HS RF: 0 Stand-Alone Forms: [facility] Discharge Orders: Discharge Order (Routine); Ordered 06/08/18 Ordered By: Saurabh Valadez Admission Data Admit Date/Time: 05/20/18 01:01 Attending Provider: Saurabh Valadez Admit Provider: Ricardo Gary Primary Care Provider: London Sahni Other Providers: Ricardo Gary ; Irma Alvarez ; Kennedy Gomez ; Tamica Nieto I ; Edelmira Clay ; Epifanio Osuna ; Bbii Adair Service: [facility] Other Pending Studies at Discharge: No
--- NOTE | 2018-06-08 14:13 | Discharge Summary ---
Date of Service June 08, 2018 Admission HPI Per Admitting Provider This is a 77-year-old female with past medical history significant for vascular dementia, Alzheimer dementia, chronic kidney disease stage III, who lives with her daughter, was brought in because she fell from the bed. Patient has ongoing dementia. As per daughter dianna is not walking since February. She is eating very little. She is on regular food. Last bowel movement was about a week ago, and she is urinating okay. Mostly does not talk much. She can tell her name, she does not know where she is, obeys simple commands. As per daughter, she complained of some right groin pain. Currently resting comfortably and hemodynamically stable. Labs showed sodium of 155. Afebrile. No cough, no nausea, no vomiting, no headaches. Could not get much history from the patient. Daughter Also complains of left lower extremity swelling Admission Exam Per Admitting Provider PHYSICAL EXAMINATION: GENERAL: Patient is old and frail, not in acute distress. VITAL SIGNS: Temperature 36.4, pulse 85, respiratory rate 20, blood pressure 115/95, oxygen saturation 97% on room air. HEENT: No pallor, no icterus. Pupils equal, round, and reactive to light. NECK: No JVD, no neck masses, no carotid bruits. CARDIOVASCULAR SYSTEM: S1 and S2 heard, regular rate and rhythm, no murmur, no gallop. RESPIRATORY SYSTEM: Clear to auscultation bilaterally. No wheezing, no crackles. ABDOMEN: Soft, bowel sounds present, nontender, no distention. CENTRAL NERVOUS SYSTEM: Alert, awake, oriented to name only, obeys simple commands. EXTREMITIES: left lower extremity edema present, no erythema seen . Principal Diagnosis Dementia DVT s/p Thrush CKD Discharge Exam ROS-No Headache, No Visual Changes, No Fever, No Chills, No Neck Pain or Stiffness, No Chest Pain, No Palpitations, No SOB, No CHEN, No Cough, No Sputum, No Wheezing, No Abdominal Pain, No Diarrhea, No Hematemesis, No Hemoptysis, No Unexpected Weight Loss, No Flank pain, No Melena, No Hematochezia, No Frequency , No Urgency, No Burning, No Hematuria, No Rashes, No Diaphoresis. Appetite is Normal Physical Exam Gen-AAO x 2, NAD, Afebrile Head-NCAT, EOMI, PERRLA, Anicteric Sclera, No Posterior Pharyngeal Erythema Neck-Supple, No JVD, No Thyromegaly, No Masses, No LAD, No Bruits Lungs-Clear to Auscultation Bilaterally, No Rales, No Rhonchi, No Wheezing, No Crepitus Chest-No S4, +S1, +S2, No S3, No Murmurs, No Rubs, No Gallops, No Ectopy Abdomen-Soft, Bowel Sounds Present, Non Tender, Non Distended, No Hepatomegaly, No Splenomegaly, No Palpable Masses, No Rebound, No Rigidity, No Guarding Musculoskeletal-Full Range of Motion Bilaterally, No CVAT Extremities-No Cyanosis, No Clubbing, No Edema Nuero-Cranial Nerves II-XII grossly intact, Motor WNL, DTRs WNL, Strength WNL, No Focal Psych-Demented, Pleasant Discharge Data Allergies Allergy/AdvReac Type Severity Reaction Status Date / Time Penicillins Allergy Unknown Unknown Verified 05/19/18 22:44 Consultations 05/19/18 22:51 ED Decision to Admit Stat 05/20/18 03:16 Consult Case Management - Discharge Planning Routine 05/20/18 08:00 Consult Nephrology Routine Current Diagnoses Candidal stomatitis (05/20/18) Hyperosmolality and hypernatremia (05/20/18) Hypokalemia (05/20/18) Unspecified dementia without behavioral disturbance (05/20/18) Acute embolism and thrombosis of left femoral vein (05/20/18) Acute kidney failure, unspecified (05/20/18) Chronic kidney disease, stage 3 (moderate) (05/20/18) Allergies Penicillins Allergy (Unknown, Verified 05/19/18 22:44) Unknown Height/Weight/Isolation Height 5 ft 4 in Weight 76.8 kg Chemistry 06/07/18 06:40 Sodium 139 Potassium 3.6 Chloride 104 Carbon Dioxide 27 Anion Gap 8.0 BUN 5 L Creatinine 0.73 Glucose 89 Ordered Studies 05/19/18 20:32 CT cervical spine wo con Stat 05/19/18 20:33 CT head/brain wo con Stat 05/19/18 22:57 US venous doppler LE LT Urgent Hospital Course (1) DVT of lower extremity (deep venous thrombosis): Left lower extremity deep venous thrombus. INR subtherapeutic so restarted her warfarin at reduced 2.5mg daily dose. Cover with Lovenox 1mg/kg until INR>2. Increased Warfarin to 5 mg QD, Warfarin dosing as per INR (2) Thrush, oral: Nystatin course completed (3) Hypernatremia: Hypernatremia has resolved. (4) Dementia: Mental status is at baseline. DC to [facility] (5) CKD (chronic kidney disease), stage III: She is at her baseline Dispo-to [facility] snf today DNR Total Time Total Time Spent Total Time Spent (In Minutes): 60 mins Total Time Includes: Examination of the Patient, Discharge Planning, Medication Reconciliation and Communication With Other Providers Discharge Plan Discharge Items Patient Disposition: Trans Resident Long-Term Care Reason For Visit: FALL Discharge Diagnosis: CKD Dementia DVT Discharge Goals: Improve function Activity: Resume your previous activity Lifting: None Bathing: No limitations Exercise/Sports: None Weightbearing: Left weightbearing and Right weightbearing Non-emergency contact: Primary Care Provider Call non-emergency contact if: your symptoms worsen and your pain is worsening Diet: Regular Addtl Provider Instructions: Supportive Care Prescriptions: New warfarin 2 mg tablet 5 mg PO DAILY@1600 Qty: 90 RF: 0 Continue multivitamin Tablet 1 tab PO DAILY RF: 0 quetiapine [Seroquel] 25 mg Tablet PO HS RF: 0 Stand-Alone Forms: [facility] Discharge Orders: Discharge Order (Routine); Ordered 06/08/18 Ordered By: Saurabh Valadez Admission Data Admit Date/Time: 05/20/18 01:01 Attending Provider: Saurabh Valadez Admit Provider: Ricardo Gary Primary Care Provider: London Sahni Other Providers: Ricardo Gary ; Irma Alvarez ; Kennedy Gomez ; Tamica Nieto I ; Edelmira Clay ; Epifanio Osuna ; Bibi Adair Service: [facility] Other Pending Studies at Discharge: No
[2018-06-08] MEDS ORDERED: WARFARIN SOD 5 MG TAB PO SCH (16:00)
[2018-06-08] MEDS: ACETAMINOPHEN 325 MG TAB PO PRN (20:31)
[2018-06-09 07:06] LABS: INR 2.2 (0.9-1.1); Prothrombin Time 21.1 Seconds (9.0-12.0)
[2018-06-09] MEDS: MULTIVITAMIN TAB PO SCH (07:16)
[2018-06-09] MEDS: POLYETHYLENE (MIRALAX) 17 GM PACK PO SCH (07:16)
[2018-06-09 08:13] VITALS: PULSE 97; TEMP 97.5; O2SAT 96
--- NOTE | 2018-06-09 13:13 | Hospitalist Progress Note ---
Date of Service June 09, 2018 Assessment & Plan (1) DVT of lower extremity (deep venous thrombosis): Left lower extremity deep venous thrombus. INR subtherapeutic so restarted her warfarin at reduced 2.5mg daily dose. Off Lovenox. Warfarin dosing as per INR (2) Thrush, oral: Nystatin course completed (3) Hypernatremia: Hypernatremia has resolved. (4) Dementia: Mental status is at baseline. DC to [facility] if able (5) CKD (chronic kidney disease), stage III: She is at her baseline Dispo-daughter refused discharge yesterday, investigation as to what to do is underway. Dose warfarin as per INR DNR Subjective Pleasant and cooperative. Patient's daughter went to [facility] and refused to pay them, and also refused her mother to go there. Investigation underway as to what we can do. ROS-No Headache, No Visual Changes, No Fever, No Chills, No Neck Pain or Stiffness, No Chest Pain, No Palpitations, No SOB, No CHEN, No Cough, No Sputum, No Wheezing, No Abdominal Pain, No Diarrhea, No Hematemesis, No Hemoptysis, No Unexpected Weight Loss, No Flank pain, No Melena, No Hematochezia, No Frequency , No Urgency, No Burning, No Hematuria, No Rashes, No Diaphoresis. Appetite is Normal Physical Exam Gen-AAO x 2, NAD, Afebrile, comfortable Head-NCAT, EOMI, PERRLA, Anicteric Sclera, No Posterior Pharyngeal Erythema Neck-Supple, No JVD, No Thyromegaly, No Masses, No LAD, No Bruits Lungs-Clear to Auscultation Bilaterally, No Rales, No Rhonchi, No Wheezing, No Crepitus Chest-No S4, +S1, +S2, No S3, No Murmurs, No Rubs, No Gallops, No Ectopy Abdomen-Soft, Bowel Sounds Present, Non Tender, Non Distended, No Hepatomegaly, No Splenomegaly, No Palpable Masses, No Rebound, No Rigidity, No Guarding Musculoskeletal-Full Range of Motion Bilaterally, No CVAT Extremities-No Cyanosis, No Clubbing, No Edema Nuero-Cranial Nerves II-XII grossly intact, Motor WNL, DTRs WNL, Strength WNL, No Focal Psych-Normal Mood, Demented Physical Exam 2 Vital Signs (Past 24 Hours): Last Vital Signs Temp 36.4 C L 06/09/18 08:12 Pulse 97 H 06/09/18 08:12 Resp 20 06/09/18 08:12 BP 125/59 L 06/09/18 08:12 Pulse Ox 96 06/09/18 08:12 Results & Data Laboratory Results 06/09/18 Range/Units 06:38 PT 21.1 H (9.0-12.0) Seconds INR 2.2 H (0.9-1.1) _ (1) DVT of lower extremity (deep venous thrombosis) Affected thrombotic vein of extremity: femoral Chronicity: acute Laterality : left Qualified Code(s): I82.412 - Acute embolism and thrombosis of left femoral vein
[2018-06-09 14:01] VITALS: BP 113/75
== END 2018-06-09 16:31 | DRG 300 ==
LOC: ED 19:55 → 2N 05-20 01:01 → SUATTDRO 05-20 01:01 → 2N 05-20 02:24 → 4W 06-02 15:13
DX: G30.9 Alzheimer's disease, unspecified; Z91.81 History of falling; I82.412 Acute embolism and thrombosis of left femoral vein; R63.0 Anorexia; Z66 Do not resuscitate; Z79.899 Other long term (current) drug therapy; E87.6 Hypokalemia; F01.50 Vascular dementia, unspecified severity, without behavioral disturbance, psychotic disturbance, mood disturbance, and anxiety; N17.9 Acute kidney failure, unspecified; B37.0 Candidal stomatitis; N18.3 Chronic kidney disease, stage 3 (moderate); Z74.01 Bed confinement status; R62.7 Adult failure to thrive; Z87.891 Personal history of nicotine dependence; E87.0 Hyperosmolality and hypernatremia; R79.1 Abnormal coagulation profile; Z88.0 Allergy status to penicillin; Z68.29 Body mass index [BMI] 29.0-29.9, adult; F02.80 Dementia in other diseases classified elsewhere, unspecified severity, without behavioral disturbance, psychotic disturbance, mood disturbance, and anxiety; Z75.1 Person awaiting admission to adequate facility elsewhere; I12.9 Hypertensive chronic kidney disease with stage 1 through stage 4 chronic kidney disease, or unspecified chronic kidney disease